=== PATIENT | female | born 1985 | race African-American/Black ===

== ENCOUNTER 2025-01-28 14:11 | Outpatient (OUT) | payer OTHER, SELFPAY ==
--- OUTSIDE RECORDS SUMMARY | 2020-11-20 08:10 | XMS_ITS | Continuity of Care Document ---
Author Organization [facility]ly [facility] rtment Address [address] [place] [address] Phone Care Team Providers Care Client Technical Professional Name Role Phone Leigha Schaefer MD Unavailable Unavailable Procedures Procedure Date PFIZER SARSCOV2 VACCINE .3ML ADMN PFIZER SARSCOV2 .3ML 2ND DOSE PFIZER SARSCOV2 VACCINE .3ML ADMN PFIZER SARSCOV2 .3ML 1ST DOSE Advance Directives Directive Yes / No Effective Date File Name No Information Encounters Encounter Description Practice Location Reason(s) For Visit Diagnoses Date Provider Providers Copied on Encounter [facility] , [address] [place], [place], [id number], tel:[phone] [facility] Dept Immunization No Information 1 Silvano Ahuja. [address] [place], [place], [id number] , . tel:[phone] [facility] , [address] [place], [place], [id number], tel:[phone] [facility] Dept Immunization No Information 1 Silvano Ahuja. [address] [place], [place], [id number] , . tel:[phone] Family History Family Member Type Diagnosis Age At Onset No Information Immunizations Vaccine Date Status Comments Pfizer COVID-19 administered Note: TPVALL ; Source: New Immunization Record Pfizer BioNtech Covid !9 Vaccine administered Note: TPVALL ; Sourc e: New Immunization Record Payers Payer name Insurance type Covered alliance party ID Authoriza tion(s) No Information Social History Type Description Quantity Date Captured Comments Sex Female Smoking Status No Information Chief Complaint And Reason For Visit No Information Reason For Referral Reason For Referral No Information History Of Present Illness Encounter Date Complaint History Of Prese nt Illness No Information Functional Status Date Functional Assessmen t No Information Instructions Date Instruction Additional Infor mation No Information Assessments Type Assessment Date No Information Patient Care Teams Name Effective Dates (start - stop) Status Members No Information
--- OUTSIDE RECORDS SUMMARY | 2024-05-14 16:30 | XMS_ITS ---
Author Organization [facility] Address [address] [place] [address] Care Team Providers Care Shellfish Checker Name Role Phone Millicent Willis Primary Care Provider Oralia Teresa [phone] REASON FOR VISIT 1MTH FOLLOW UP Encounters Encounter Location Date Provider Diagnosis [facility] [address] [place] [address] 05/14/2024 Oralia Teresa Plan Of Treatment No Information Progress Notes * CHALO JOHSNONADOB: 3 (39 yo F)Acc No.[id number]:05/14/2024 Progress Notes Patient: RADHA FLOYD Provider: Kassi Teresa CNP :1985 A ge:39 Y S ex:Female Date:05/14/2024 [address] Pcp:Millicent Willis Subjective: * Chief Complaints: * 1 . 1MTH FOLLOW UP. * Medical History: Objective: * Vitals: Assessment: Plan: * Treatment: * * Electronic signature of Oralia Teresa CNP on 01/28/2025 at 02:18 PM EDT Sign off status: Pending * Provider: Kassi Teresa CNP Date: Generated for Becky morales/Nguyen/eTransmitting on: 0 01/28/2025 02:18 PM EDT
--- OUTSIDE RECORDS SUMMARY | 2024-06-08 15:30 | XMS_ITS ---
Author Organization [facility] Address [address] [place] [address] Care Team Providers Care Local Government Legislator Name Role Phone Millicent Willis Primary Care Provider [phone] REASON FOR VISIT 4 wks, med refill Encounters Encounter Location Date Provider Diagnosis [facility] [address] [place] [address] 06/08/2024 Millicent Willis Plan Of Treatment No Information Progress Notes * ARPAN JOHNSONMELINDAJAMELB: 3 (39 yo F)Acc No.[id number]:06/08/2024 Progress Notes Patient: RADHA FLOYD Provider: Peyton Willis CNP :1985 A ge:39 Y S ex:Female Date:06/08/2024 [address] [facility] Subjective: * Chief Complaints: * 1 . 4 wks, med refill. * Medical History: Objective: * Vitals: Assessment: Plan: * Treatment: * * Electronic signature of Michael Castellon CNP on 01/28/2025 at 02:17 PM EDT Sign off status: Pending * Provider: Peyton Willis CNP Date: 08/08/2023 Generated for Becky morales/Nguyen/Berta on: 01/28/2025 02:17 PM EDT
--- OUTSIDE RECORDS SUMMARY | 2024-07-23 17:15 | XMS_ITS ---
Author Organization [facility] Address [address] [place] [address] Care Team Providers Care Pet Care Worker Name Role Phone Millicent Willis Primary Care Provider [phone] REASON FOR VISIT DISCUSS ZEPBOUND Encounters Encounter Location Date Provider Diagnosis [facility] [address] [place] [address] 07/23/2024 Millicent Willis Plan Of Treatment No Information Progress Notes * STEPHANI JOHNSONB: 3 (39 yo F)Acc No.[id number]:07/23/2024 Patient: RADHA FLOYD Provider: Peyton Willis CNP :1985 A ge:39 Y S ex:Female Date:07/23/2024 Address[address] [place], [id number] Subjective: * Chief Complaints: * 1 . DISCUSS ZEPBOUND. * Medical History: Objective: * Vitals: Assessment: Plan: * Treatment: * * Electronic signature of Michael Castellon CNP on 01/28/2025 at 02:18 PM EDT Sign off status: Pending * Provider: Peyton Willis CNP Date: 0 07/23/2024 Generated for Becky morales/Nguyen/Berta on: 0 01/28/2025 02:18 PM EDT
--- OUTSIDE RECORDS SUMMARY | 2025-01-28 14:18 | XMS_ITS | Patient Health Record ---
[facility] Organization [facility] Address [address] [place] [address] Care Team Providers Care Motor Vehicle Technician Name Role Phone Millicent Willis Primary Care Provider [phone] YOANA TOMLINSON Unavailable [phone] Oralia Teresa Unavailable [phone] Allergies Allergen (clinical drug ingredient) Drug/Non Drug Allergy documented on EMR Reaction Allergy Type Onset Date Status Grass Mix Pollens Allergen Ext Unknown Drug Allergy Active Cat dander Cat Dander Unknown Allergy Active Dog dander Dog Dander Unknown Allergy Active Results Component Value Reference Range Notes Total Iron Binding Capacity Reviewed date:07/30/2024 08:31:09 AM Interpretation: Performing Lab: Notes/Report: [facility] [address] [place] [address] Iron Sat 11.5 >=16.0 % TIBC 253 261-478 mcg/dL Transferrin 181 192-382 mg/dL Iron 29 28-170 mcg/dL Ferritin Reviewed date:07/30/2024 08:31:09 AM Interpretation: Performing Lab: Notes/Report: [facility] [address] [place] [address] Ferritin Lvl 279.2 11.0-306.8 ng/mL Diff Auto Reviewed date:05/12/2024 12:35:21 PM Interpretation: Performing Lab: Notes/Report: [facility] (UNKNOWN) [address] [place] [address] Neutro Auto 60.8 47.2-70.8 % Lymph Auto 25.2 27.2-40.8 % [place] Auto 6.3 3.7-11.9 % Eos Auto 6.8 0.0-5.4 % Basophil Auto 0.9 0.0-1.5 % Neutro Absolute 4.1 1.8-7.7 x10*3/mcL Lymph Absolute 1.7 1.0-4.8 x10*3/mcL [place] Absolute 0.4 0.1-1.1 x10*3/mcL Eos Absolute 0.5 0.0-0.4 x10*3/mcL Baso Absolute 0.1 0.0-0.2 x10*3/mcL .eGFR Reviewed date:05/12/2024 12:45:58 PM Interpretation: Performing Lab: Notes/Report: [facility] (UNKNOWN) [address] [place] [address] Estimated GFR >60 >=60 mL/min/1.73m? [facility] have implemented the eGFR calculation approach that does not have a coefficient for race and that conforms to the NKF-ASN Task Force Recommendations. Stages of Chronic Kidney Disease GFR Stage 3a Mild to moderate loss of kidney function 59 to 45 Stage 3b Moderate to severe loss of kidney function 44 to 33 Stage 4 Severe loss of kidney function 29 to 15 Stage 5 Kidney failure Less than 15 GFR calculated using the CKD-Epi Creatinine Equation (2020): eGFR = 142 X min(SCr/?, 1)? X max(SCr /?, 1)-1.200 X 0.9938Age X 1.012 [if female] Abbreviations/Units: eGFR (estimated glomerular filtration rate) = mL/min/1.73 m2 SCr (standardized serum creatinine) = mg/dL ? = 0.7 (females) or 0.9 (males) ? = -0.241 (females) or -0.302 (males) min = indicates the minimum of SCr/? or 1 max = indicates the maximum of SCr/? or 1 Age = years CMP Reviewed date:05/12/2024 12:45:58 PM Interpretation: Performing Lab: Notes/Report: [facility] (UNKNOWN) [address] [place] [address] Sodium Lvl 138 136-145 mmol/L Potassium Lvl 3.9 3.5-5.1 mmol/L Chloride 103 98-107 mmol/L CO2 30 21-31 mmol/L Anion Gap 5 4-12 Glucose Lvl 57 70-99 mg/dL BUN 9 7-25 mg/dL Creatinine Lvl 1.03 0.60-1.30 mg/dL BUN Crea Ratio 8.7 10.0-20.0 Bili Total 0.4 0.3-1.0 mg/dL Alk Phos 55 34-104 IU/L AST 14 13-39 IU/L ALT 13 7-52 IU/L Total Protein 6.9 6.4-8.9 g/dL Albumin Lvl 4.4 3.5-5.7 g/dL AG Ratio 1.8 1.1-2.2 Calcium Lvl 9.1 8.6-10.2 mg/dL Total Iron Binding Capacity Reviewed date:05/14/2024 07:46:38 AM Interpretation: Performing Lab: Notes/Report: [address] [address] Iron Sat 10.6 >=16.0 % TIBC 339 261-478 mcg/dL Transferrin 242 192-382 mg/dL Iron 36 28-170 mcg/dL Ferritin Reviewed date:05/14/2024 07:46:38 AM Interpretation: Performing Lab: Notes/Report: [address] [address] Ferritin Lvl 15.9 11.0-306.8 ng/mL Complete Blood Count w Diffe rential Reviewed date:05/12/2024 12:35:20 PM Interpretation: Performing Lab: Notes/Report: [facility] (UNKNOWN) [address] [place] [address] WBC 6.7 4.5-11.0 x10*3/mcL RBC 4.70 3.80-5.20 x10*6/mcL Hgb 13.5 12.0-16.0 g/dL Hct 41.7 36.0-46.0 % MCV 88.8 80.0-100.0 fL MCH 28.7 27.0-35.0 pg MCHC 32.3 31.0-37.0 % Platelet 389 150-450 x10*3/mcL RDW 14.6 11.6-14.8 % Mean Platelet Volume 8.2 6.7-10.6 fL Diff Auto Reviewed date:11/08/2024 08:33:01 AM Interpretation: Performing Lab: Notes/Report: [address] [address] Neutro Auto 75.8 47.2-70.8 % Lymph Auto 18.0 27.2-40.8 % [place] Auto 5.5 3.7-11.9 % Eos Auto 0.4 0.0-5.4 % Basophil Auto 0.3 0.0-1.5 % Neutro Absolute 6.9 1.8-7.7 x10*3/mcL Lymph Absolute 1.6 1.0-4.8 x10*3/mcL [place] Absolute 0.5 0.1-1.1 x10*3/mcL Eos Absolute 0.0 0.0-0.4 x10*3/mcL Baso Absolute 0.0 0.0-0.2 x10*3/mcL Complete Blood Count ashu villareal Reviewed date:11/08/2024 08:33:01 AM Interpretation: Performing Lab: Notes/Report: [address] [address] WBC 9.1 4.5-11.0 x10*3/mcL RBC 4.14 3.80-5.20 x10*6/mcL Hgb 12.2 12.0-16.0 g/dL Hct 35.4 36.0-46.0 % MCV 85.5 80.0-100.0 fL MCH 29.4 27.0-35.0 pg MCHC 34.4 31.0-37.0 % Platelet 246 150-450 x10*3/mcL RDW 15.9 11.6-14.8 % Mean Platelet Volume 8.2 6.7-10.6 fL C SUKHJINDER Reviewed date:11/16/2024 08:31:20 AM Interpretation: Performing Lab: Notes/Report: [address] [address] Note Patient Name: Radha Pierson : 1985 [facility] C SUKHJINDER See Below For Report Final No anaerobic organisms isolated. Demetris Figueroa Reviewed date:11/19/2024 08:08:32 AM Interpretation: Performing Lab: Notes/Report: [facility] (DEFAULT) [address] [facility] [place] [address] [facility] [address] [place] [address] Note Patient Name: Radha Pierson : 1985 [facility] C Bld per jenni saavedra disregard request for lab to draw 11/05/2024 06:27:11 EDT Final No growth at 5 days. C Bld See Below For Report Final No growth at 5 days. C Sterile BF Reviewed date:11/16/2024 08:31:20 AM Interpretation: Performing Lab: Notes/Report: [facility] [address] [place] [address] Note Patient Name: Radha Pierson : 1985 [facility] C Sterile BF See Below For Report Gram Stain Many White Blood Cells Final No growth at 72 hours. C Sterile BF See Below For Report Gram Stain Many White Blood Cells Final No growth at 72 hours. C Sterile BF No organisms seen. Gram Stain Many White Blood Cells Final No growth at 72 hours. .Fld pH Reviewed date:11/08/2024 08:33:01 AM Interpretation: Performing Lab: Notes/Report: [place] [address] pH Body Fluid 7.55 C SUKHJINDER Reviewed date:11/16/2024 08:31:21 AM Interpretation: Performing Lab: Notes/Report: [id number] [place] [address] Note Patient Name: Radha Pierson : 1985 [facility] C SUKHJINDER See Below For Report Final No anaerobic organisms isolated. C Sterile BF Reviewed date:11/16/2024 08:31:21 AM Interpretation: Performing Lab: Notes/Report: [facility] [address] [place] [address] Note Patient Name: Radha Pierson : 1985 [facility] C Sterile BF See Below For Report Gram Stain Many White Blood Cells Final No growth at 72 hours. C Sterile BF See Below For Report Gram Stain Many White Blood Cells Final No growth at 72 hours. C Sterile BF No organisms seen. Gram Stain Many White Blood Cells Final No growth at 72 hours. Surgical Pathology Report Reviewed date:11/10/2024 08:34:54 AM Interpretation: Performing Lab: Notes/Report: [facility] (DEFAULT) [address] [place], [place] [id number] Note Patient Name: Radha Pierson : 1985 [facility] Surgical Pathology Report Clinical Information Procedure: Diagnostic laparoscopy robotic Pre-operative diagnosis: Vaginal dehiscence SP Specimen A Vaginal Cuff Trimmings Gross Description Received in formalin labeled 'vaginal cuff trimmings' are multiple pieces of unoriented pink-ochoa tissue measuring in aggregate 1.5 x 1.0 x 0.6 cm. Fragments of tissue measure 0.5 x 0.3 x 0.2 cm and 1.5 x 0.3 x 0.2 cm. The excision margin of each piece of tissue is painted with black ink. The specimen is entirely submitted intact in cassettes A1-A3. Microscopic Description The vaginal cuff trimmings show vaginal mucosa with ulceration and acute and chronic inflammation and foreign body giant cell reaction to refractile material. There is no evidence of malignancy. Diagnosis Vaginal cuff trimmings from vaginal dehiscence: Vaginal mucosa with ulceration. Acute and chronic inflammation and foreign body giant cell reaction to refractile foreign material in the underlying soft tissue. [id number] Kathrine Irizarry MD (Electronically signed by) Verified: 11/09/24 12:33 Body Fluid Panel Reviewed date:11/08/2024 08:33:01 AM Interpretation: Performing Lab: Notes/Report: vaginal fluid from vaginal defect and peritoneal [place] [address] Fld Panel Body Fluid Type Other The reference range and analytic accuracy have not been established for these tests in this sample type. The test results should be interpreted based on clinical context. Glucose Body Fluid 11 LDH Body Fluid 410 Protein Body Fluid <3.0 Body Fluid Creatinine Reviewed date:11/08/2024 08:33:01 AM Interpretation: Performing Lab: Notes/Report: [place] [address] Creatinine Body Fluid Type Peritoneal Creatinine Body Fluid 0.6 Hep Bs Ag Reviewed date:02/16/2024 02:17:22 PM Interpretation: Performing Lab: Notes/Report: [facility] [address] [place] [address] Hep Bs Ag Interp Non-Reactive Non-Reactive Diff Auto Reviewed date:02/16/2024 02:17:22 PM Interpretation: Performing Lab: Notes/Report: [facility] (UNKNOWN) [address] [place] [address] Neutro Auto 63.3 47.2-70.8 % Lymph Auto 27.1 27.2-40.8 % [place] Auto 5.0 3.7-11.9 % Eos Auto 3.5 0.0-5.4 % Basophil Auto 1.1 0.0-1.5 % Neutro Absolute 4.0 1.8-7.7 x10*3/mcL Lymph Absolute 1.7 1.0-4.8 x10*3/mcL [place] Absolute 0.3 0.1-1.1 x10*3/mcL Eos Absolute 0.2 0.0-0.4 x10*3/mcL Baso Absolute 0.1 0.0-0.2 x10*3/mcL .eGFR Reviewed date:02/16/2024 02:17:22 PM Interpretation: Performing Lab: Notes/Report: [facility] (UNKNOWN) [address] [place] [address] Estimated GFR >60 >=60 mL/min/1.73m? [facility] have implemented the eGFR calculation approach that does not have a coefficient for race and that conforms to the NKF-ASN Task Force Recommendations. Stages of Chronic Kidney Disease GFR Stage 3a Mild to moderate loss of kidney function 59 to 45 Stage 3b Moderate to severe loss of kidney function 44 to 33 Stage 4 Severe loss of kidney function 29 to 15 Stage 5 Kidney failure Less than 15 GFR calculated using the CKD-Epi Creatinine Equation (2020): eGFR = 142 X min(SCr/?, 1)? X max(SCr /?, 1)-1.200 X 0.9938Age X 1.012 [if female] Abbreviations/Units: eGFR (estimated glomerular filtration rate) = mL/min/1.73 m2 SCr (standardized serum creatinine) = mg/dL ? = 0.7 (females) or 0.9 (males) ? = -0.241 (females) or -0.302 (males) min = indicates the minimum of SCr/? or 1 max = indicates the maximum of SCr/? or 1 Age = years CMP Reviewed date:02/16/2024 02:17:22 PM Interpretation: Performing Lab: Notes/Report: [facility] (UNKNOWN) [address] [place] [address] Sodium Lvl 138 136-145 mmol/L Potassium Lvl 3.5 3.5-5.1 mmol/L Chloride 108 98-107 mmol/L CO2 23 21-31 mmol/L Anion Gap 7 4-12 Glucose Lvl 87 70-99 mg/dL BUN 11 7-25 mg/dL Creatinine Lvl 0.81 0.60-1.30 mg/dL BUN Crea Ratio 13.6 10.0-20.0 Bili Total 0.4 0.3-1.0 mg/dL Alk Phos 46 34-104 IU/L AST 13 13-39 IU/L ALT 11 7-52 IU/L Total Protein 6.9 6.4-8.9 g/dL Albumin Lvl 4.2 3.5-5.7 g/dL AG Ratio 1.6 1.1-2.2 Calcium Lvl 9.2 8.6-10.2 mg/dL Total Iron Binding Capacity Reviewed date:02/16/2024 02:17:22 PM Interpretation: Performing Lab: Notes/Report: [facility] [address] [place] [address] Iron Sat 25.1 >=16.0 % TIBC 319 261-478 mcg/dL Transferrin 228 192-382 mg/dL Iron 80 28-170 mcg/dL Ferritin Reviewed date:02/16/2024 02:17:22 PM Interpretation: Performing Lab: Notes/Report: [facility] [address] [place] [address] Ferritin Lvl 44.4 11.0-306.8 ng/mL Complete Blood Count w Ru villareal Reviewed date:02/16/2024 02:17:22 PM Interpretation: Performing Lab: Notes/Report: [facility] (UNKNOWN) [address] [place] [address] WBC 6.4 4.5-11.0 x10*3/mcL RBC 4.58 3.80-5.20 x10*6/mcL Hgb 12.9 12.0-16.0 g/dL Hct 39.8 36.0-46.0 % MCV 86.8 80.0-100.0 fL MCH 28.2 27.0-35.0 pg MCHC 32.5 31.0-37.0 % Platelet 285 150-450 x10*3/mcL RDW 20.8 11.6-14.8 % Mean Platelet Volume 7.4 6.7-10.[address] Abdomen Pelvis w/ IV Cont rast Reviewed date:11/08/2024 08:33:01 AM Interpretation: Performing Lab: Notes/Report: Patient Name: Radha Pierson EXAM: CT Abdomen Pelvis w/ IV Contrast C Bld Reviewed date:11/19/2024 08:08:32 AM Interpretation: Performing Lab: Notes/Report: [facility] [address] [place] [address] Note : 1985 [facility] Patient Name: Radha Pierson C Bld See Below For Report Final No growth at 5 days. Dinah Schaffer-Quitman Reviewed date:08/06/2024 01:00:05 PM Interpretation: Performing Lab: Notes/Report: [facility] [address] [place] [address] Soluble Transferrin Receptor (sTfR)-[place] 3.7 1.8 - 4.6 mg/L ADDITI ONAL INFORMATION ----- It is reported that Americans may have slightly higher values. Test Performed by: [address] [address] Geotechnical Operating Engineer: Jose C Hassan Ph.D.; CLIA# [id number] CT Abdomen Pelvis w/ IV Cont rast Reviewed date:07/20/2024 12:06:06 PM Interpretation: Performing Lab: Notes/Report: Patient Name: Radha Pierson EXAMINATION: CT Abdomen Pelvis w/ IV Contrast, 07/19/2024, 8:49 AM EST. Diff Auto Reviewed date:07/30/2024 08:31:09 AM Interpretation: Performing Lab: Notes/Report: [facility] (UNKNOWN) [address] [place] [address] Neutro Auto 75.0 47.2-70.8 % Lymph Auto 15.4 27.2-40.8 % [place] Auto 8.3 3.7-11.9 % Eos Auto 0.7 0.0-5.4 % Basophil Auto 0.6 0.0-1.5 % Neutro Absolute 7.1 1.8-7.7 x10*3/mcL Lymph Absolute 1.5 1.0-4.8 x10*3/mcL [place] Absolute 0.8 0.1-1.1 x10*3/mcL Eos Absolute 0.1 0.0-0.4 x10*3/mcL Baso Absolute 0.1 0.0-0.2 x10*3/mcL Complete Blood Count w Diffe rential Reviewed date:07/30/2024 08:31:09 AM Interpretation: Performing Lab: Notes/Report: [facility] (UNKNOWN) [address] [place] [address] WBC 9.5 4.5-11.0 x10*3/mcL RBC 4.11 3.80-5.20 x10*6/mcL Hgb 12.0 12.0-16.0 g/dL Hct 35.7 36.0-46.0 % MCV 86.9 80.0-100.0 fL MCH 29.1 27.0-35.0 pg MCHC 33.5 31.0-37.0 % Platelet 747 150-450 x10*3/mcL RDW 17.6 11.6-14.8 % Mean Platelet Volume 7.4 6.7-10.6 fL Surgical Pathology Report Reviewed date:03/11/2024 12:42:25 PM Interpretation: Performing Lab: Notes/Report: [facility] (DEFAULT) [address] [place] [address] Note Patient Name: Radha Pierson : 1985 [facility] Surgical Pathology Report Part C: Received in formalin labeled 'GE junction biopsies' are three pieces of light ochoa tissue measuring 0.2 to 0.3 cm in greatest dimension. The specimen is entirely submitted in cassette C1. Clinical Information Procedure: EGD Pre-operative diagnosis: dyspepsia SP Specimen A Random duodenal biopsies B Random gastric biopsies C GE junction biopsies Gross Description Part A: Received in formalin labeled 'random duodenal biopsies' are four pieces of light ochoa tissue measuring 0.2 to 0.3 cm in greatest dimension. The specimen is entirely submitted in cassette A1. Part B: Received in formalin labeled 'random gastric biopsies' are four pieces of light ochoa tissue measuring 0.1 to 0.5 cm in greatest dimension. The specimen is entirely submitted in cassette B1. Microscopic Description Part A: Sections examined at multiple levels show fragments of duodenal mucosa showing no significant villous shortening. The lamina propria shows a normal amount of chronic inflammatory cells. There is no evidence of acute inflammation or granulomatous disease. There is no evidence of dysplasia or malignancy. There is no evidence of celiac disease. Part B: Sections examined at multiple levels show fragments of gastric mucosa showing lamina propria with mildly increased lymphocytes, plasma cells and scattered eosinophils. The glandular epithelium shows slight reactive changes. There is no evidence of acute inflammation or granulomatous disease. There is no evidence of dysplasia or malignancy. No Helicobacter pylori is seen on the H Part C: Sections examined at multiple levels show fragments of gastroesophageal junctional zone mucosa. The squamous epithelium shows very rare eosinophils.. The glandular mucosa shows distended lamina propria with mild chronic inflammation. No significant acute inflammation is noted. There is no evidence of intestinal metaplasia, dysplasia or malignancy. Diagnosis Part A: Duodenum, biopsies: No significant pathologic change. Part B: Stomach, random biopsies: Mild chronic inflammation. Part C: Gastroesophageal junction, biopsies: Mild chronic inflammation. [id number] Joann Duarte MD PhD (Electronically signed by) Verified: 03/10/24 14:47 Reason For Referral No Information Medications Medication SIG (Take, Route, Frequency, Duration) Notes Start Date End Date Status predniSONE 20 MG 1 tablet Orally twic e daily; Duration: 5 days 05/11/2024 Active Vitamin B-12 500 MCG 1 tablet under the tongue and allow to dissolve Sublingual Once a day; Duration: 30 days 11/03/2023 Active Albuterol Sulfate HFA 108 (90 Base) MCG/ACT 2 puffs Inhalation every 4-6 hours as needed; Duration: 30 05/11/2024 Active Terbinafine HCl 1 % 1 application to aff ected area Externally Twice a day; Duration: 28 days 01/02/2024 Active Phentermine HCl 37.5 MG 1 tablet Orally Once a day; Duration: 30 days R63.5 05/11/2024 Active Ferrous Sulfate 325 (65 Fe) MG 1 tablet Orally Once a day; Duration: 30 day(s) 10/14/2023 Active Jdhdpxlhb-Mqfahpxu-IQ 30-2-10 MG/5ML 10ml Orally every 6 hours as needed for cough; Duration: 5 days 05/11/2024 Active Vitamin D3 Ultra Strength 125 MCG (5000 UT) 1 capsule Orally Once a day; Duration: 90 days 10/14/2023 Active Cetirizine HCl 10 MG 1 tablet Orally Onc e a day; Duration: 30 days 09/30/2023 Active Social History Tobacco Use: Social History Observation Description Date Details (start date - stop date) Never Smoker NA - NA Tobacco Use/Smoking Question Answer Notes Are you a nonsmoker Section Notes: Smoking Status:None Alcohol Use: Twice a week Recreational Drugs: Marijuana Caffeine Use: Coffee, 2 cups a day Pets: 3 Dogs , 1 cat Occupation: Unemploy[employer] Marital Status: Single # in household: Nuzhat Tobin 09/30/2023 11:21:00 AM > Smoking Status:None Alcohol Use: Twice a week Recreational Drugs: Marijuana Caffeine Use: Coffee, 2 cups a day Pets: 3 Dogs , 1 cat Occupation: [employer]employ[employer] Marital Status: Single # in household: Nuzhat Tobin 09/30/2023 11:21:00 AM > Smoking Status:None Alcohol Use: Twice a week Recreational Drugs: Marijuana Caffeine Use: Coffee, 2 cups a day Pets: 3 Dogs , 1 cat Occupation: [employer]employ[employer] Marital Status: Single # in household: Nuzhat Tobin 09/30/2023 11:21:00 AM > Smoking Status:None Alcohol Use: Twice a week Recreational Drugs: Marijuana Caffeine Use: Coffee, 2 cups a day Pets: 3 Dogs , 1 cat Occupation: [employer]employ[employer] Marital Status: Single # in household: Nuzhat Tobin 09/30/2023 11:21:00 AM > Smoking Status:None Alcohol Use: Twice a week Recreational Drugs: Marijuana Caffeine Use: Coffee, 2 cups a day Pets: 3 Dogs , 1 cat Occupation: [employer]employ[employer] Marital Status: Single # in household: Nuzhat Tobin 09/30/2023 11:21:00 AM > Smoking Status:None Alcohol Use: Twice a week Recreational Drugs: Marijuana Caffeine Use: Coffee, 2 cups a day Pets: 3 Dogs , 1 cat Occupation: [employer]employ[employer] Marital Status: Single # in household: Nuzhat Tobin 09/30/2023 11:21:00 AM > Smoking Status:None Alcohol Use: Twice a week Recreational Drugs: Marijuana Caffeine Use: Coffee, 2 cups a day Pets: 3 Dogs , 1 cat Occupation: [employer]employ[employer] Marital Status: Single # in household: Nuzhat Tobin 09/30/2023 11:21:00 AM > Smoking Status:None Alcohol Use: Twice a week Recreational Drugs: Marijuana Caffeine Use: Coffee, 2 cups a day Pets: 3 Dogs , 1 cat Occupation: [employer]employ[employer] Marital Status: Single # in household: Nuzhat Tobin 09/30/2023 11:21:00 AM > Smoking Status:None Alcohol Use: Twice a week Recreational Drugs: Marijuana Caffeine Use: Coffee, 2 cups a day Pets: 3 Dogs , 1 cat Occupation: Unemploy[employer] Marital Status: Single # in household: Nuzhat Tobin 09/30/2023 11:21:00 AM > Smoking Status:None Alcohol Use: Twice a week Recreational Drugs: Marijuana Caffeine Use: Coffee, 2 cups a day Pets: 3 Dogs , 1 cat Occupation: Unemployeed Marital Status: Single # in household: Nuzhat Tobin 09/30/2023 11:21:00 AM > Problems Problem Type SNOMED Code ICD Code Onset Dates Problem Status W/U Status Risk Notes Problem Vitamin D deficiency (29493191) Vitamin D deficiency (E55.9) Active confirmed Problem Endometriosis (310289186) Endometriosis (N80.9) Active confirmed Problem Iron deficiency anemia (75812298) Iron deficiency anemia, unspecified iron deficiency anemia type (D50.9) Active confirmed Problem Seasonal allergy (224812306) Seasonal allergies (J30.2) Active confirmed Problem Allergic rhinitis (41397088) Allergic rhinitis, unspecified seasonality, unspecified trigger (J30.9) Active confirmed Problem Multiple thyroid nodules (082364832) Multiple thyroid nodules (E04.2) Active confirmed Problem History of anemia (073559126) History of anemia (Z86.2) Active confirmed Problem History of gestational diabetes mellitus (695951358) History of gestational diabetes (Z86.32) Active confirmed Vital Signs Heart Rate 84 /min 05/11/2024 Temperature 98.0 degrees Fahrenheit 05/11/2024 Respiratory Rate 17 /min 05/11/2024 Oximetry 98 % 05/11/2024 Blood pressure diastolic 89 mm Hg 05/11/2024 Height 65 in 05/11/2024 Blood pressure systolic 134 mm Hg 05/11/2024 Weight 203.6 lbs 05/11/2024 BMI 33.88 kg/m2 05/11/2024 Encounters Encounter Location Date Provider Diagnosis [address] [address] 02/16/2024 Oralia Teresa Abnormal weight gain R63.5 ; Poison kedar dermatitis L23.7 and Seasonal allergies J30.[address] [address] 04/12/2024 Oralia Teresa Seasonal allergies J30.2 and Abnormal weight gain R63.[address] [address] 05/11/2024 Millicent Willis Abnormal weight gain R63.5 and Upper respiratory infection J06.[address] [address] 02/11/2024 Millicent Willis Allergic rhinitis, unspecified seasonality, unspecified trigger J30.9 and Low vitamin B12 level R79.[address] [address] 03/02/2024 Oralia Teresa Abnormal weight gain R63.[address] [address] 07/22/2024 Millicent Willis Assessments Encounter Date Diagnosis (ICD Code) Assessment Notes Treatment Notes Treatment Clinical Notes Section Notes 02/11/2024 Allergic rhinitis, unspecified seasonality, unspecified trigger (ICD-10 - J30.9) 02/16/2024 Poison kedar dermatitis (ICD-10 - L23.7) keep area cool and dry, oral steroids ordered 03/02/2024 Abnormal weight gain (ICD-10 - R63.5) 04/12/2024 Abnormal weight gain (ICD-10 - R63.5) Patient advised to limit carbohydrates, increase proteins and vegetables, drink plenty water, avoid sweetened beverages, exercise 4-5 times weekly for a minimum of 150-200 minutes of cardio exercise per week. Will need to lose weight this month or med will be discontinued 04/12/2024 Seasonal allergies (ICD-10 - J30.2) Avoid allergens Take med daily 05/11/2024 Abnormal weight gain (ICD-10 - R63.5) Patient encouraged to exercise daily and limit carb intake. Aware that she must not become while on this medication. Aware that it may cause constipation, dry mouth and elevated heart rate and knows to call for these or any other adverse reactions Weight stable. 02/16/2024 Abnormal weight gain (ICD-10 - R63.5) Pt advised to exercise 4-5 times weekly, limit carbohydrates and increase vegetables, proteins and water intake. Avoid eating late at night. Avoid soda's and sweetened beverages. 02/16/2024 Seasonal allergies (ICD-10 - J30.2) avoid allergens 05/11/2024 Upper respiratory infection (ICD-10 - J06.9) Pt advised to rest, drink lots of fluids. Avoid tobacco use or exposure. Use immune support vitamins 02/11/2024 Low vitamin B12 level (ICD-10 - R79.89) Plan Of Treatment Pending Test Test Name Order Date Iron and TIBC 09/30/2023 Vitamin D, 25-Hydroxy 09/30/2023 MAMMOGRAM, SCREENING 11/03/2023 Ferritin 09/30/2023 Hemoglobin A1c 09/30/2023 Lipid Panel 09/30/2023 US Biopsy Thyroid w/ FNA 10/14/2023 B12 AND FOLATE 09/30/2023 CBC NO DIFF 09/30/2023 TSH 09/30/2023 FREE T4 09/30/2023 CMP 09/30/2023 Insurance Providers Payer Name Payer Address Payer Phone Subscriber Number Group Number Insured Name Patient Relationship to Insured Coverage Start Date Coverage End Date [facility] [address] [place] [phone] [id number] RADHA PIERSON Self - patient is the insured Medical (General) History Medical History History ICD Code endometriosis-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
--- OUTSIDE RECORDS SUMMARY | 2025-01-28 14:18 | XMS_ITS | Clinical Summary ---
Author Organization [facility] Address [address] [place] [address] Care Team Providers Care Doweling Machine Operator Name Role Phone Millicent Willis APRN - BAG LINER Primary Care Provider [phone] [phone] Allergies Active Allergy Reactions Criticality Noted Date Comments Cat Dander Other (See Comments) 01/06/2024 Dog Epithelium Other (See Comments) 01/06/2024 Mixed Grasses Other (See Comments) 01/06/2024 Medications vitamin D (VITAMIN D3 ULTRA STRENGTH) 125 MCG (5000 UT) CAPS capsule 1 capsule 10/14/2023 Active cetirizine (ZYRTEC) 10 MG tablet Take 1 tablet by mouth daily 01/03/2024 Active vitamin B-12 (CYANOCOBALAMIN ) 500 MCG tablet 01/03/2024 Active estradiol (ESTRACE) 1 MG tablet Take 1 tablet by mouth daily 30 tablet 09/07/2024 Active ciprofloxacin (CIPRO) 500 MG tablet 11/06/2024 Active hydrOXYzine HCl (ATARAX) 25 MG tablet 11/03/2024 Active ibuprofen (ADVIL;MOTRIN) 800 MG tablet 11/06/2024 Activ e lurasidone (LATUDA) 40 MG TABS tablet 11/03/2024 Active oxyCODONE-aceta minophen (PERCOCET) 5-325 MG per tablet 11/06/2024 Active traZODone (DESYREL) 50 MG tablet 11/03/2024 Active FLUoxetine (PROZAC) 20 MG capsule 12/01/2024 Active PARoxetine HCl (PAXIL PO) Take by mouth Active Encounters Date Type Department Care Team Description 01/26/2025 Telephone [facility] Obstetrics & Gynecology [address], [address] [place] [address] Candis Alberts PA-C Medication Refill 12/15/2024 Orders Only [facility] Obstetrics & Gynecology [address], [address] [place] [address] Candis Alberts PA-C 12/15/2024 Results Follow-Up [facility] Obstetrics & Gynecology [address] [facility], [address] [place] [address] Candis Alberts PA-C 12/14/2024 7:24 PM EDT - 12/14/2024 11:59 PM EDT Hospital Encounter [facility] [address] [place] [id number] Vaginal discharge Discharge Disposition: Home or Self Care 12/14/2024 1:15 PM EDT Office Visit [facility] Obstetrics & Gynecology [address] [facility], [address] [place] [address] Candis Alberts PA-C Vaginal discharge (Primary Dx) 11/09/2024 1:45 PM EDT Office Visit [facility] Obstetrics & Gynecology [address], [address] [place] [address] Candis Alberts PA-C Dehiscence of vaginal cuff, sequela (Primary Dx) from Last 3 Months Family History Medical History Relation Name Comments Diabetes Father Heart Attack Father Hypertension Father Diabetes Mother Relation Name Status Comments Father Mother Social History Tobacco Use Types Packs/Day Years Used Date Smoking Tobacco: Every Day E-Cigarettes Smokeless Tobacco: Never Tobacco Cessation:Ready to Q uit: Not Asked; Counseling Given: Not Answered Alcohol Use Standard Drinks/Week Comments Yes 0 (1 standard drink = 0.6 oz pur e alcohol) [facility] Utilities Answer Date Recorded In the past 12 months has [employer], gas, oil, or water [employer] threatened to shut off services in your home? No 08/03/2024 Overall Financial Resource Strain (CARDIA) Answe r Date Recorded How hard is it for you to pa y for the very basics like food, housing, medical care, and heating? Not very hard 05/17/2024 PHQ-2 Answer Date Recorded PHQ-9 Total Score 0 08/03/2024 Hunger Vital Sign Answer Date Recorded Within the past 12 months, y ou worried that your food would run out before you got the money to buy more. Never true 08/03/19 25 Within the past 12 months, t he food you bought just didn't last and you didn't have money to get more. Never true 08/03/2024 PRAPARE - Transportation Answer Date Re corded In the past 12 months, has l ack of transportation kept you from medical appointments or from getting medications? No 07/21 In the past 12 months, has l ack of transportation kept you from meetings, work, or from getting things needed for daily living? No 08/03/2024 Housing Stability Vital Sign Answer Cameron e Recorded In the last 12 months, was t here a time when you were not able to pay the mortgage or rent on time? No 08/03/2024 In the past 12 months, how m any times have you moved where you were living? 0 08/03/2024 At any time in the past 12 m [facility], were you homeless or living in a skilled nursing (including now)? No 08/03/2024 Food Insecurity Answer Date Recorded Within the past 12 months, y ou worried that your food would run out before you got the money to buy more. 1 08/03/2024 Within the past 12 months, t he food you bought just didn't last and you didn't have money to get more. 1 08/03/2024 Interpersonal Safety Domain Source: IP Abuse Scr eening Answer Date Recorded Physical abuse Denies 07/12/2024 Verbal abuse Denies 07/12/2024 Emotional abuse Denies 07/12/2024 Financial abuse Denies 07/12/2024 Sexual abuse Denies 07/12/2024 Comments No Sex and Gender Information Value Date Recorded Sex Assigned at Not on file Legal Sex Female 8:56 PM EST Gender Identity Not on file Sexual Orientation Not on file Last Filed Vital Signs Vital Sign Reading Time Taken Comments Blood Pressure 128/88 12/14/2024 1:15 PM EDT Pulse 85 07/12/2024 3:00 PM EST Temperature 36.2 C (97.2 F) 07/12/2024 1:30 PM EST Respiratory Rate 18 07/12/2024 3:00 PM EST Oxygen Saturation 96% 07/12/2024 3:00 PM EST Inhaled Oxygen Concentration - - Weight 83.6 kg (184 lb 6.4 oz) 12/14/2024 1:15 P M EDT Height 165.1 cm (5' 5 ) 08/18/2024 10:04 AM EST Body Mass Index 30.69 08/18/2024 10:04 AM EST Plan of Treatment Health Maintenance Due Date Last Done Comments Varicella vaccine (1 of 2 - 13+ 2-dose series) 02/27/1996 HIV screen 1998 Hepatitis C screen 2001 Hepatitis B vaccine (1 of 3 - 19+ 3-dose series) 2002 Pneumococcal 0-49 years Vaccine (1 of 2 - PCV) 2002 Diabetes screen 2018 Breast cancer screen 2023 Lipids 2023 COVID-19 Vaccine (3 - 2023-2 5 season) 2024 11/20/2020, 10/30/2020 Flu vaccine (#1) 02/18/2025 Depression Screen 08/03/2025 08/03/2024, 08/03/2024 DTaP/Tdap/Td vaccine (2 - Td or Tdap) 12/12/2026 12/12/2016 Cervical cancer screen Discontinued HPV (without or with Pap) Discontinued 02/05/2024 Pap smear Discontinued 02/05/2024 HPV vaccine Aged Out No longer eligi ble based on patient's age to complete this topic Hepatitis A vaccine Aged Out No longe r eligible based on patient's age to complete this topic Hib vaccine Aged Out No longer eligi ble based on patient's age to complete this topic Meningococcal (ACWY) vaccine Aged Out No longer eligible based on patient's age to complete this topic Meningococcal B vaccine Aged Out No l onger eligible based on patient's age to complete this topic Polio vaccine Aged Out No longer elig ible based on patient's age to complete this topic Procedures Procedure Name Priority Date/Time Associated Diagnosis Comments VAGINITIS DNA PROBE Routine 12/14/2024 7 :48 PM EDT Vaginal discharge HUMAN PAPILLOMAVIRUS (HPV) DNA PROBE THIN PREP HIGH RISK Routine 02/05/2024 12:00 AM EDT BRICK CHIMNEY BUILDER CYTOLOGY Routine 02/05/2024 12:00 AM EDT from Last 3 Months or Most Recently Relevant to Health Maintenance Results * (ABNORMAL) Vaginitis DNA Probe (12/14/2024 7:48 PM EDT) Source .VAGINAL SWAB 12/14/2024 7:48 PM EDT [facility] Trichomonas NEGATIVE NEGATIVE 12/14/2024 7:48 PM EDT [facility] Comment:for Trichomonas Vagi nalis GARDNERELLA VAGINALIS POSITIVE(A) NEGATIVE 12/14/2024 7:48 PM EDT [facility] Comment:for Gardnerella vagi nalis Kim species NEGATIVE NEGATIVE 7:48 PM EDT [facility] Comment: for Kim sp. Method of testing is a DNA probe intended for detection and identification of Kim species, Gardnerella vaginalis, and Trichomonas vaginalis nucleic acid in vaginal fluid specimens from patients with symptoms of vaginitis/vaginosis. SPECIMEN FROM CERVIX OR VAGINA / Unknown 12/14/2024 7:48 PM EDT 12/14/2024 7:48 PM EDT Candis Alberts PA-C MICROBIOLOGY - GENERAL O RDERABLES Final Result [facility] [address] [phone] * Human papillomavirus (HPV) DNA probe thin prep high risk (02/05/2024 12:00 AM EDT) Specimen Description CERVICAL MATERIAL 02/05/2024 12:00 AM EDT [facility] HPV Sample .THIN PREP 02/05/2024 12:00 AM EDT [facility] HPV, Genotype 16 Not Detected Not Detected 02/05/2024 12:00 AM EDT [facility] HPV, Genotype 18 Not Detected Not Detected 02/05/2024 12:00 AM EDT [facility] HPV, High Risk Other Not Detected Not Detected 02/05/2024 12:00 AM EDT [facility] HPV, Interpretation 02/05/2024 12:00 AM EDT [facility] Comment: This test amplifies and detects DNA of 14 high-risk HPV types associated with cervical cancer and its precursor lesions (HPV types 16,18, 31, 33, 35, 39, 45, 51, 52, 56, 58, 59, 66, and 68). Sensitivity may be affected by specimen collection methods, stage of infection, and the presence of interfering substances. Results should be interpreted in conjunction with other available laboratory and clinical data. A negative high-risk HPV result does not exclude the possibility of future cytologic HSIL or underlying CIN2-3 or cancer. This test is intended for medical purposes only and is not valid for the evaluation of suspected sexual abuse or for other forensic purposes. CERVICAL MATERIAL 02/05/2024 Candis Alberts PA-C HEMATOLOGY ORDERABLES Fi nal Result [facility] [address] [place] [address], [facility] [phone] * BRICK CHIMNEY BUILDER Cytology (02/05/2024 12:00 AM EDT) Cytology Report Path Number: [id number] DIAGNOSIS Imaged ThinPrep Pap - Cervical (1 monolayer slide): Specimen Adequacy: Satisfactory for evaluation. - Endocervical/trans formation zone component present. - Partially obscuring exudate. Descriptive Diagnosis: Negative for intraepithelial lesion or malignancy. Cytotech Screener: EN Electronically Signed Out CORAZON Diaz(ASCP) en/02/17/2024 Procedure/Addendum HPV Procedure Report Date Ordered: 02/10/2024 Status: Signed Out Date Complete: 02/10/2024 By: System Interface Date Reported: 02/10/2024 Sample: HPV Type 16 Result: Not Detected Ref Range: (Not Detected) Sample: HPV Type 18 Result: Not Detected Ref Range: (Not Detected) Sample: Other High Risk HPV Result: Not Detected Ref Range: (Not Detected) Sample: HPV Interp Result: Ref Range: (Not Detected) This test amplifies and detects DNA of 14 high-risk HPV types associated with cervical cancer and its precursor lesions (HPV types 16,18, 31, 33, 35, 39, 45, 51, 52, 56, 58, 59, 66, and 68). Sensitivity may be affected by specimen collection methods, stage of infection, and the presence of interfering substances. Results should be interpreted in conjunction with other available laboratory and clinical data. A negative high-risk HPV result does not exclude the possibility of future cytologic HSIL or underlying CIN2-3 or cancer. This test is intended for medical purposes only and is not valid for the evaluation of suspected sexual abuse or for other forensic purposes. Performed at [address] [id number] . Source of Specimen: A: Imaged ThinPrep Pap - Cervical (1 monolayer slide) HPV Reflex?........... ...........HPV Regardless Clinical History Z01.419 Routine chemist water purification exam without abnormal findings LMP: 12/16/2023 Processing Lab: [address] [id number] Interpretation performed at [address] [address] This Pap Test has been evaluated with the assistance of the ThinPrep Pap Test Imaging System. The Pap smear is a screening test primarily for squamous epithelial lesions, which is subject to both false negative and false positive results. Your patient should be reminded to consult you immediately if she experiences any suspicious signs or symptoms, regardless of her Pap smear result. GYNECOLOGIC CYTOLOGY REPORT Patient Name: JEIMY PIERSON [facility] Rec: [id number] [facility] ANATOMIC PATHOLOGY [address] [place] [id number] [facility] [employer] CERVICAL MATERIAL 02/05/2024 024 6:51 AM EDT us Candis Alberts PA-C PATHOLOGY/CYTOLOGY ORDER BRYCE Final Result [facility] [address] [place] [address], [facility] [phone] YUDI REDDY [facility] from Last 3 Months or Most Recently Relevant to Health Maintenance Insurance [employer] Advance Directives * Full Code (Latest Code Status on File) Date Activated Date Inactivated Comments 07/12/2024 10:34 AM 07/12/2024 5:11 PM Care Teams Doweling Machine Operator Relationship Specialty Start Date End Date Millicent Willis APRN - BAG LINER [address] [place] [address] PCP - General Nurse Practitioner 11/27/23
--- OUTSIDE RECORDS SUMMARY | 2025-01-28 14:18 | XMS_ITS | Encounter Summary ---
Author Organization [facility] Address [address] [place] [address] Care Team Providers Care Hr Advisor Name Role Phone Millicent Willis RETURN TO SERVICE INSPECTOR - FORM COVERER Primary Care Provider [phone] Encounter Details Date Type Department Care Team ([facility] Contact Info) Description 12/15/2024 Results Follow-Up [facility] Obstetrics & Gynecology [address] [facility] [address], [address] [place] [address] Candis Alberts PA-C [address] [place] [address] Social History Tobacco Use Types Packs/Day Years Used Date Smoking Tobacco: Every Day E-Cigarettes Smokeless Tobacco: Never Alcohol Use Standard Drinks/Week Comments Yes 0 (1 standard drink = 0.6 oz pur e alcohol) [facility] Utilities Answer Date Recorded In the past 12 months has [employer], gas, oil, or water [employer] threatened to shut off services in your [...] any time in the past 12 m [facility], were you homeless or living in a fpc (including now)? No 08/03/2024 Food Insecurity Answer [...] on file Sexual Orientation Not on file documented as of this encounter Plan of Treatment Not on file documented as of this encounter Visit Diagnoses Not on filedocumented in this encounter Care Teams Hr Advisor Relationship Specialty Start Date End Date Millicent Willis APRN - FORM COVERER [address] [place] [address] PCP - General Nurse Practitioner 11/27/23 documented as of this encounter
--- OUTSIDE RECORDS SUMMARY | 2025-01-28 14:18 | XMS_ITS | Encounter Summary ---
Author Organization [facility] Address [address] [place] [address] Care Team Providers Care Crutcher Helper Name Role Phone Millicent Willis APRN - INSURANCE FOLLOW UP REPRESENTATIVE Primary Care Provider [phone] [phone] Reason for Visit * Reason Onset Date Comments Medication Refill 01/26/2025 Encounter Details Date Type Department Care Team ([facility] st Contact Info) Description 01/26/2025 Telephone [facility] Obstetrics & Gynecology [address], [address] [place] [address] Candis Alberts PA-C [address] [place] [address] Medication Refill Social History Tobacco Use Types Packs/Day Years Used Date Smoking Tobacco: Every Day E-Cigarettes Smokeless Tobacco: Never Alcohol Use Standard Drinks/Week Comments Yes 0 (1 standard drink = 0.6 oz pur e alcohol) [facility] Utilities Answer Date Recorded In the past 12 months has e [employer], gas, oil, or water [employer] threatened to shut off services in your [...] any time in the past 12 m [facility], were you homeless or living in a usp (including now)? No 08/03/2024 Food Insecurity Answer [...] on filedocumented in this encounter Care Teams Crutcher Helper Relationship Specialty Start Date End Date Millicent Willis APRN - INSURANCE FOLLOW UP REPRESENTATIVE [address] [place] [address] PCP - General Nurse Practitioner 11/27/23 documented as of this encounter
[2025-01-28 14:44] LABS: Hematocrit 37.9 % (36.0-48.0); Hemoglobin 12.2 g/dL (12.0-16.0); Immature Granulocytes Abs Auto 0.01 10^3/uL (0.00-0.03); Immature Granulocytes Pct Auto 0.2 % (0.0-0.5); Lymphocytes Absolute Auto 1.8 10^3/uL (1.2-3.8); Mean Corpuscular HGB Conc 32.2 g/dL (29.9-35.2); Mean Corpuscular Hemoglobin 28.8 pg (26.7-34.0); Mean Corpuscular Volume 89.4 fL (81.0-99.0); Platelet Count 284 10^3/uL (150-450); Red Blood Count 4.24 10^6/uL (4.20-5.40); White Blood Count 5.7 10^3/uL (4.0-11.0)
[2025-01-28 15:04] LABS: Alanine Aminotransferase 56 U/L (14-59); Albumin Globulin Ratio 1.1; Albumin Level 3.0 g/dL (3.4-5.0); Alkaline Phosphatase 64 U/L (46-116); Anion Gap 8.9; Aspartate Amino Transferase 37 U/L (15-37); Blood Urea Nitrogen 14.0 mg/dL (7.0-18.0); Calcium 8.4 mg/dL (8.5-10.1); Carbon Dioxide 30.3 mmol/L (21.0-32.0); Chloride 108 mmol/L (98-107); Estimated GFR (African America >60 (>=60 mL/min/1.73m^2); Estimated GFR (Non-African Ame >60 (>=60 mL/min/1.73m^2); Globulin 2.8 g/dL; Glucose 81 mg/dL (74-106); Potassium 4.2 mmol/L (3.5-5.1); Sodium 143 mmol/L (136-145); Total Protein 5.8 g/dL (6.4-8.2)
== END 2025-01-28 14:12 | disposition home or self-care (01) ==
LOC: LAB 14:16
PROVIDERS: Visit Provider Nurse Practitioner Primary Care
DX: F10.20 Alcohol dependence, uncomplicated (principal); F14.20 Cocaine dependence, uncomplicated
CPT/HCPCS: 36415; 80053; 85025; 86317; 87340; 87389; 87522

== ENCOUNTER 2025-02-08 12:36 | Outpatient (OUT) | payer OTHER, SELFPAY ==
--- OUTSIDE RECORDS SUMMARY | 2020-11-20 08:10 | XMS_ITS | Continuity of Care Document ---
Author Organization [facility] rtment Address [address] [place] [address] Phone Care Team Providers Care Boat Diesel Motor Mechanic Name Role Phone Leigha Schaefer MD Unavailable Unavailable Procedures Procedure Date PFIZER SARSCOV2 VACCINE .3ML ADMN PFIZER SARSCOV2 .3ML 2ND DOSE PFIZER SARSCOV2 VACCINE .3ML ADMN PFIZER SARSCOV2 .3ML 1ST DOSE Advance Directives Directive Yes / No Effective Date File Name No Information Encounters Encounter Description Practice Location Reason(s) For Visit Diagnoses Date Provider Providers Copied on Encounter [facility] , [address] [place], [place], [id number], tel:[phone] [facility] Dept Immunization No Information 1 Silvano Ahuja. [address] [place], [place], [id number] , . tel:[phone] [facility] , [address] [place], [place], [id number], tel:[phone] [facility] Dept Immunization No Information 1 Silvano Ahuja. [address] [place], [place], [id number] , . tel:[phone] Family History Family Member Type Diagnosis Age At Onset No Information Immunizations Vaccine Date Status Comments Pfizer COVID-19 administered Note: TPVALL ; Source: New Immunization Record Pfizer BioNtech Covid !9 Vaccine administered Note: TPVALL ; Sourc e: New Immunization Record Payers Payer name Insurance type Covered green party ID Authoriza tion(s) No Information Social [...]
--- OUTSIDE RECORDS SUMMARY | 2024-05-14 16:30 | XMS_ITS ---
Author Organization [facility] Address [address] [place] [address] Care Team Providers Care Supervisor Finish End Name Role Phone Millicent Willis Primary Care Provider [phone] Oralia Teresa [phone] REASON FOR VISIT 1MTH FOLLOW UP Encounters Encounter Location Date Provider Diagnosis [facility] [address] [place] [address] 05/14/2024 Oralia Teresa Plan Of Treatment No Information Progress Notes * CHALO JOHNSONADOB: 3 (39 yo F)Acc No.[id number]:05/14/2024 Progress Notes Patient: RADHA FLOYD Provider: Kassi Teresa CNP :1985 A ge:39 Y S ex:Female Date:05/14/2024 [address] [facility] [place] Pcp:Millicent Willis Subjective: * Chief Complaints: * 1 . 1MTH FOLLOW UP. * Medical History: Objective: * Vitals: Assessment: Plan: * Treatment: * * Electronic signature of Oralia Teresa CNP on 02/08/2025 at 12:43 PM EDT Sign off status: Pending * Provider: Kassi Teresa CNP Date: Generated for Becky morales/Nguyen/eTransmitting on: 0 02/08/2025 12:43 PM EDT
--- OUTSIDE RECORDS SUMMARY | 2024-06-08 15:30 | XMS_ITS ---
Author Organization [facility] Address [address] [place] [address] Care Team Providers Care Gear Setter Name Role Phone Millicent Willis Primary Care Provider [phone] REASON FOR VISIT 4 wks, med refill Encounters Encounter Location Date Provider Diagnosis [facility] [address] [place] [address] 06/08/2024 Millicent Willis Plan Of Treatment No Information Progress Notes * ARPAN JOHNSONMELINDAJAMELB: 3 (39 yo F)Acc No.[id number]:06/08/2024 Progress Notes Patient: RADHA FLOYD Provider: Pyeton Willis CNP :1985 A ge:39 Y S ex:Female Date:06/08/2024 [address] [facility] Subjective: * Chief Complaints: * 1 . 4 wks, med refill. * Medical History: Objective: * Vitals: Assessment: Plan: * Treatment: * * Electronic signature of Michael Castellon CNP on 02/08/2025 at 12:43 PM EDT Sign off status: Pending * Provider: Peyton Willis CNP Date: 08/08/2023 Generated for Becky morales/Nguyen/eTkwakuitting on: 02/08/2025 12:43 PM EDT
--- OUTSIDE RECORDS SUMMARY | 2024-07-23 17:15 | XMS_ITS ---
Author Organization [facility] Address [address] [place] [address] Care Team Providers Care Critical Care Cns Name Role Phone Millicent Willis Primary Care Provider REASON FOR VISIT DISCUSS ZEPBOUND Encounters Encounter Location Date Provider Diagnosis [facility] [address] [place] [address] 07/23/2024 Millicent Willis Plan Of Treatment No Information Progress Notes * STEPHANI JOHNSONB: 3 (39 yo F)Acc No.[id number]:07/23/2024 Patient: RADHA FLOYD Provider: Peyton Willis CNP :1985 A ge:39 Y S ex:Female Date:07/23/2024 Address[address] [place] Subjective: * Chief Complaints: * 1 . DISCUSS ZEPBOUND. * Medical History: Objective: * Vitals: Assessment: Plan: * Treatment: * * Electronic signature of Michael Castellon CNP on 02/08/2025 at 12:44 PM EDT Sign off status: Pending * Provider: Peyton Willis CNP Date: 0 07/23/2024 Generated for Becky morales/Nguyen/Maria Estheritting on: 0 02/08/2025 12:44 PM EDT
--- OUTSIDE RECORDS SUMMARY | 2025-02-08 12:44 | XMS_ITS | Encounter Summary ---
Author Organization [facility] Address [address], [address] [place] [address] Care Team Providers Care Senior Drafter Name Role Phone Millicent Willis APRN - POLICE RADIO DISPATCHER Primary Care Provider [phone] Reason for Visit * Reason Onset Date Comments Medication Refill 01/26/2025 Encounter Details Date Type Department Care Team ([facility] st Contact Info) Description 01/26/2025 Telephone [facility] Obstetrics & Gynecology [address] [facility], [address] [place] [address] Candis Alberts PA-C [address] [place] [address] Medication Refill Social History Tobacco Use Types Packs/Day Years Used Date Smoking Tobacco: Every Day E-Cigarettes Smokeless Tobacco: Never Alcohol Use Standard Drinks/Week Comments Yes 0 (1 standard drink = 0.6 oz pur e alcohol) [facility] Utilities Answer Date Recorded In the past 12 months has e [employer], gas, oil, or water [employer] threatened to shut off services in your [...] any time in the past 12 m [facility], were you homeless or living in a half-way (including now)? No 08/03/2024 Food Insecurity Answer [...] on filedocumented in this encounter Care Teams Senior Drafter Relationship Specialty Start Date End Date Millicent Willis APRN - POLICE RADIO DISPATCHER [address] [place] [address] PCP - General Nurse Practitioner 11/27/23 documented as of this encounter
--- OUTSIDE RECORDS SUMMARY | 2025-02-08 12:44 | XMS_ITS | Patient Health Record ---
Author Organization [facility] l[facility] Address [address] [place] [address] Care Team Providers Care Disability Counselor Name Role Phone Millicent Willis Primary Care Provider [phone] YOANA TOMLINSON Unavailable [phone] Oralia Teresa Unavailable [phone] Allergies Allergen (clinical drug ingredient) Drug/Non Drug Allergy documented on EMR Reaction Allergy Type Onset Date Status Grass Mix Pollens Allergen Ext Unknown Drug Allergy Active Cat dander Cat Dander Unknown Allergy Active Dog dander Dog Dander Unknown Allergy Active Results Component Value Reference Range Notes Diff Auto Reviewed date:07/30/2024 08:31:09 AM Interpretation: Performing Lab: Notes/Report: [facility] (UNKNOWN) [address] [place] [address] Neutro Auto 75.0 47.2-70.8 % Lymph Auto 15.4 27.2-40.8 % Newton Auto 8.3 3.7-11.9 % Eos Auto 0.7 0.0-5.4 % Basophil Auto 0.6 0.0-1.5 % Neutro Absolute 7.1 1.8-7.7 x10*3/mcL Lymph Absolute 1.5 1.0-4.8 x10*3/mcL Newton Absolute 0.8 0.1-1.1 x10*3/mcL Eos Absolute 0.1 0.0-0.4 x10*3/mcL Baso Absolute 0.1 0.0-0.2 x10*3/mcL Total Iron Binding Capacity Reviewed date:07/30/2024 08:31:09 AM Interpretation: Performing Lab: Notes/Report: [facility] [address] [place] [address] Iron Sat 11.5 >=16.0 % TIBC 253 261-478 mcg/dL Transferrin 181 192-382 mg/dL Iron 29 28-170 mcg/dL Ferritin Reviewed date:07/30/2024 08:31:09 AM Interpretation: Performing Lab: Notes/Report: [address] [address] Ferritin Lvl 279.2 11.0-306.8 ng/mL Complete Blood Count w Diffe rential Reviewed date:07/30/2024 08:31:09 AM Interpretation: Performing Lab: Notes/Report: [facility] ([facility]KNOWN) [address] [place] [address] WBC 9.5 4.5-11.0 x10*3/mcL RBC 4.11 3.80-5.20 [...] w/ IV Contrast, 07/19/2024, 8:49 AM EST. Surgical Pathology Report Reviewed date:03/11/2024 12:42:25 PM Interpretation: Performing Lab: Notes/Report: [facility] (DEFAULT) [address] [place] [address] Note : 1985 [facility] Patient Name: Radha Pierson Surgical Pathology Report Part B: Received in formalin labeled 'random gastric biopsies' are four pieces of light ochoa tissue measuring 0.1 to 0.5 cm in greatest dimension. The specimen is entirely submitted in cassette B1. (Electronically signed by) [id number] Clinical Information [id number] C GE junction biopsies SP Specimen Part C: Gastroesophageal junction, biopsies: Mild chronic inflammation. Part B: Sections examined at multiple levels show fragments of gastric mucosa showing lamina propria with mildly increased lymphocytes, plasma cells and scattered eosinophils. The glandular epithelium shows slight reactive changes. There is no evidence of acute inflammation or granulomatous disease. There is no evidence of dysplasia or malignancy. No Helicobacter pylori is seen on the H Joann Duarte MD PhD Part C: Sections examined at multiple levels show fragments of gastroesophageal junctional zone mucosa. The squamous epithelium shows very rare eosinophils.. The glandular mucosa shows distended lamina propria with mild chronic inflammation. No significant acute inflammation is noted. There is no evidence of intestinal metaplasia, dysplasia or malignancy. Pre-operative diagnosis: dyspepsia Microscopic Description Part C: Received in formalin labeled 'GE junction biopsies' are three pieces of light ochoa tissue measuring 0.2 to 0.3 cm in greatest dimension. The specimen is entirely submitted in cassette C1. B Random gastric biopsies Part B: Stomach, random biopsies: Mild chronic inflammation. Part A: Sections examined at multiple levels show fragments of duodenal mucosa showing no significant villous shortening. The lamina propria shows a normal amount of chronic inflammatory cells. There is no evidence of acute inflammation or granulomatous disease. There is no evidence of dysplasia or malignancy. There is no evidence of celiac disease. Diagnosis Verified: 03/10/24 14:47 Part A: Received in formalin labeled 'random duodenal biopsies' are four pieces of light ochoa tissue measuring 0.2 to 0.3 cm in greatest dimension. The specimen is entirely submitted in cassette A1. Procedure: EGD A Random duodenal biopsies Gross Description Part A: Duodenum, biopsies: No significant pathologic change. Hep Bs Ag Reviewed date:02/16/2024 02:17:22 PM Interpretation: Performing Lab: Notes/Report: [facility] [address] [place] [address] Hep Bs Ag Interp Non-Reactive Non-Reactive Diff Auto Reviewed date:02/16/2024 02:17:22 PM Interpretation: Performing Lab: Notes/Report: [facility] ([facility]) [address] [place] [address] Neutro Auto 63.3 47.2-70.8 % Lymph Auto 27.1 27.2-40.8 % Newton Auto 5.0 3.7-11.9 % Eos Auto 3.5 0.0-5.4 % Basophil Auto 1.1 0.0-1.5 % Neutro Absolute 4.0 1.8-7.7 x10*3/mcL Lymph Absolute 1.7 1.0-4.8 x10*3/mcL Newton Absolute 0.3 0.1-1.1 x10*3/mcL Eos Absolute 0.2 0.0-0.4 x10*3/mcL Baso Absolute 0.1 0.0-0.2 x10*3/mcL .eGFR Reviewed date:02/16/2024 02:17:22 PM Interpretation: Performing Lab: Notes/Report: [facility] ([facility]) [address] [place] [address] Estimated GFR >60 >=60 mL/min/1.73m? [facility] Laboratories have implemented the eGFR calculation approach that does not have a coefficient for race and that conforms to the NKF-ASN Task Force Recommendations. min = indicates the minimum of SCr/? or 1 SCr (standardized serum creatinine) = mg/dL eGFR = 142 X min(SCr/?, 1)? X max(SCr /?, 1)-1.200 X 0.9938Age X 1.012 [if female] ? = 0.7 (females) or 0.9 (males) Abbreviations/Units: max = indicates the maximum of SCr/? or 1 Stage 3b Moderate to severe loss of kidney function 44 to 33 Stage 4 Severe loss of kidney function 29 to 15 eGFR (estimated glomerular filtration rate) = mL/min/1.73 m2 GFR calculated using the CKD-Epi Creatinine Equation (2020): Stages of Chronic Kidney Disease GFR Stage 5 Kidney failure Less than 15 Stage 3a Mild to moderate loss of kidney function 59 to 45 ? = -0.241 (females) or -0.302 (males) Age = years CMP Reviewed date:02/16/2024 02:17:22 PM Interpretation: Performing Lab: Notes/Report: [facility] ([facility]) [address] [place] [address] Sodium Lvl 138 136-145 mmol/L Potassium Lvl [...] date:02/16/2024 02:17:22 PM Interpretation: Performing Lab: Notes/Report: [address] [address] Iron Sat 25.1 >=16.0 % TIBC 319 261-478 mcg/dL Transferrin 228 192-382 mg/dL Iron 80 28-170 mcg/dL Ferritin Reviewed date:02/16/2024 02:17:22 PM Interpretation: Performing Lab: Notes/Report: [address] [address] Ferritin Lvl 44.4 11.0-306.8 ng/mL Complete Blood Count ashu villareal Reviewed date:02/16/2024 02:17:22 PM Interpretation: Performing Lab: Notes/Report: [facility] ([facility]) [address] [place] [address] WBC 6.4 4.5-11.0 x10*3/mcL RBC 4.58 3.80-5.20 x10*6/mcL Hgb 12.9 12.0-16.0 g/dL Hct 39.8 36.0-46.0 % MCV 86.8 80.0-100.0 fL MCH 28.2 27.0-35.0 pg MCHC 32.5 31.0-37.0 % Platelet 285 150-450 x10*3/mcL RDW 20.8 11.6-14.8 % Mean Platelet Volume 7.4 6.7-10.6 fL C SUKHJINDER Reviewed date:11/16/2024 08:31:20 AM Interpretation: Performing Lab: Notes/Report: [address] [address] Note : 1985 Patient Name: Radha Pierson [facility] C SUKHJINDER See Below For Report No anaerobic organisms isolated. Final C SUKHJINDER Reviewed date:11/16/2024 08:31:21 AM Interpretation: Performing Lab: Notes/Report: [facility] [address] [place] [id number] Note : 1985 Patient Name: Radha Pierson [facility] C SUKHJINDER See Below For Report Final No anaerobic organisms isolated. Body Fluid Creatinine Reviewed date:11/08/2024 08:33:01 AM Interpretation: Performing Lab: Notes/Report: [place] [address] Creatinine Body Fluid Type Peritoneal Creatinine Body Fluid 0.6 Dinah Trn [facility] Reviewed date:08/06/2024 01:00:05 PM Interpretation: Performing Lab: Notes/Report: [facility] [address] [place] [address] Soluble Transferrin Receptor (sTfR)-[place] 3.7 1.8 - 4.6 mg/L [address] [place], [place] [id number] Sheeter Waxer Operator: Jose C Hassan Ph.D.; CLIA# [id number] ADDITI ONAL INFORMATION ----- [facility] higher values. It is reported that Americans may have slightly Test Performed by: Diff Auto Reviewed date:05/12/2024 12:35:21 PM Interpretation: Performing Lab: Notes/Report: [facility] ([facility]) [address] [place] [id number] Neutro Auto 60.8 47.2-70.8 % Lymph Auto 25.2 27.2-40.8 % Newton Auto 6.3 3.7-11.9 % Eos Auto 6.8 0.0-5.4 % Basophil Auto 0.9 0.0-1.5 % Neutro Absolute 4.1 1.8-7.7 x10*3/mcL Lymph Absolute 1.7 1.0-4.8 x10*3/mcL Newton Absolute 0.4 0.1-1.1 x10*3/mcL Eos Absolute 0.5 0.0-0.4 x10*3/mcL Baso Absolute 0.1 0.0-0.2 x10*3/mcL .eGFR Reviewed date:05/12/2024 12:45:58 PM Interpretation: Performing Lab: Notes/Report: [facility] ([facility]) [address] [place] [address] Estimated GFR >60 >=60 mL/min/1.73m? ? = 0.7 (females) or 0.9 (males) [facility] Laboratories have implemented the eGFR calculation approach that does not have a coefficient for race and that conforms to the NKF-ASN Task Force Recommendations. SCr (standardized serum creatinine) = mg/dL eGFR = 142 X min(SCr/?, 1)? X max(SCr /?, 1)-1.200 X 0.9938Age X 1.012 [if female] Stage 4 Severe loss of kidney function 29 to 15 Abbreviations/Units: GFR calculated using the CKD-Epi Creatinine Equation (2020): Stage 3b Moderate to severe loss of kidney function 44 to 33 max = indicates the maximum of SCr/? or 1 eGFR (estimated glomerular filtration rate) = mL/min/1.73 m2 Stages of Chronic Kidney Disease GFR ? = -0.241 (females) or -0.302 (males) Stage 3a Mild to moderate loss of kidney function 59 to 45 min = indicates the minimum of SCr/? or 1 Age = years Stage 5 Kidney failure Less than 15 CMP Reviewed date:05/12/2024 12:45:58 PM Interpretation: Performing Lab: Notes/Report: [facility] ([facility]) [address] [place] [address] Sodium Lvl 138 136-145 mmol/L Potassium Lvl [...] date:05/14/2024 07:46:38 AM Interpretation: Performing Lab: Notes/Report: [address] [address] Iron Sat 10.6 >=16.0 % TIBC 339 261-478 mcg/dL Transferrin 242 192-382 mg/dL Iron 36 28-170 mcg/dL Ferritin Reviewed date:05/14/2024 07:46:38 AM Interpretation: Performing Lab: Notes/Report: [address] [address] Ferritin Lvl 15.9 11.0-306.8 ng/mL Complete Blood Count w Emileee mono Reviewed date:05/12/2024 12:35:20 PM Interpretation: Performing Lab: Notes/Report: [facility] ([facility]) [address] [place] [address] WBC 6.7 4.5-11.0 x10*3/mcL RBC 4.70 3.80-5.20 x10*6/mcL Hgb 13.5 12.0-16.0 g/dL Hct 41.7 36.0-46.0 % MCV 88.8 80.0-100.0 fL MCH 28.7 27.0-35.0 pg MCHC 32.3 31.0-37.0 % Platelet 389 150-450 x10*3/mcL RDW 14.6 11.6-14.8 % Mean Platelet Volume 8.2 6.7-10.6 fL Diff Auto Reviewed date:11/08/2024 08:33:01 AM Interpretation: Performing Lab: Notes/Report: [address] [address] Neutro Auto 75.8 47.2-70.8 % Lymph Auto 18.0 27.2-40.8 % Newton Auto 5.5 3.7-11.9 % Eos Auto 0.4 0.0-5.4 % Basophil Auto 0.3 0.0-1.5 % Neutro Absolute 6.9 1.8-7.7 x10*3/mcL Lymph Absolute 1.6 1.0-4.8 x10*3/mcL Newton Absolute 0.5 0.1-1.1 x10*3/mcL Eos Absolute 0.0 0.0-0.4 x10*3/mcL Baso Absolute 0.0 0.0-0.2 x10*3/mcL Complete Blood Count w Diffe rential Reviewed date:11/08/2024 08:33:01 AM Interpretation: Performing Lab: Notes/Report: [place] [id number] WBC 9.1 4.5-11.0 x10*3/mcL RBC 4.14 3.80-5.20 x10*6/mcL Hgb 12.2 12.0-16.0 g/dL Hct 35.4 36.0-46.0 % MCV 85.5 80.0-100.0 fL MCH 29.4 27.0-35.0 pg MCHC 34.4 31.0-37.0 % Platelet 246 150-450 x10*3/mcL RDW 15.9 11.6-14.8 % Mean Platelet Volume 8.2 6.7-10.6 fL C Bld Reviewed date:11/19/2024 08:08:32 AM Interpretation: Performing Lab: Notes/Report: [facility] (DEFAULT) [address] [place] [address] [address] Note [facility] : 1985 Patient Name: Radha Shi Willson Bld per jenni saavedra disregard request for lab to draw 11/05/2024 06:27:11 EDT Final No growth at 5 days. C Bld See Below For Report Final No growth at 5 days. C Sterile BF Reviewed date:11/16/2024 08:31:20 AM Interpretation: Performing Lab: Notes/Report: [address] [address] Note Patient Name: Radha Pierson : 1985 [facility] C Sterile BF See Below For Report Gram Stain No growth at 72 hours. Final Many White Blood Cells C Sterile BF See Below For Report Gram Stain No growth at 72 hours. Final Many White Blood Cells C Sterile BF No organisms seen. Gram Stain No growth at 72 hours. Final Many White Blood Cells CT Abdomen Pelvis w/ IV Cont rast Reviewed date:11/08/2024 08:33:01 AM Interpretation: Performing Lab: Notes/Report: Patient Name: Radha Pierson EXAM: CT Abdomen Pelvis w/ IV Contrast .Fld pH Reviewed date:11/08/2024 08:33:01 AM Interpretation: Performing Lab: Notes/Report: [place] [address] pH Body Fluid 7.55 C Sterile BF Reviewed date:11/16/2024 08:31:21 AM Interpretation: Performing Lab: Notes/Report: [place] [address] Note Patient Name: Radha Pierson [facility] : 1985 C Sterile BF See Below For Report Gram Stain No growth at 72 hours. Final Many White Blood Cells C Sterile BF See Below For Report Gram Stain No growth at 72 hours. Final Many White Blood Cells C Sterile BF No organisms seen. Gram Stain No growth at 72 hours. Final Many White Blood Cells C Bld Reviewed date:11/19/2024 08:08:32 AM Interpretation: Performing Lab: Notes/Report: [facility] [address] [place] [address] Note [facility] Patient Name: Radha Pierson : 1985 C Bld See Below For Report Final No growth at 5 days. Surgical Pathology Report Reviewed date:11/10/2024 08:34:54 AM Interpretation: Performing Lab: Notes/Report: [facility] (DEFAULT) [address] [place] [address] Note [facility] Patient Name: Radha Pierson : 1985 Surgical Pathology Report SP Specimen [id number] Diagnosis Pre-operative diagnosis: Vaginal dehiscence The vaginal cuff trimmings show vaginal mucosa with ulceration and acute and chronic inflammation and foreign body giant cell reaction to refractile material. There is no evidence of malignancy. [id number] A Vaginal Cuff Trimmings Microscopic Description Clinical Information Received in formalin labeled 'vaginal cuff trimmings' are multiple pieces of unoriented pink-ochoa tissue measuring in aggregate 1.5 x 1.0 x 0.6 cm. Fragments of tissue measure 0.5 x 0.3 x 0.2 cm and 1.5 x 0.3 x 0.2 cm. The excision margin of each piece of tissue is painted with black ink. The specimen is entirely submitted intact in cassettes A1-A3. Vaginal cuff trimmings from vaginal dehiscence: Vaginal mucosa with ulceration. Acute and chronic inflammation and foreign body giant cell reaction to refractile foreign material in the underlying soft tissue. Kathrine Irizarry MD [id number] (Electronically signed by) Verified: 11/09/24 12:33 Gross Description [id number] Procedure: Diagnostic laparoscopy robotic Body Fluid Panel Reviewed date:11/08/2024 08:33:01 AM Interpretation: Performing Lab: Notes/Report: vaginal fluid from vaginal defect and peritoneal drainage Wants Creatinine [facility] [address] [place] [address] Fld Panel Body Fluid Type Other The reference range and analytic accuracy have not been established for these tests in this sample type. The test results should be interpreted based on clinical context. Glucose Body Fluid 11 LDH Body Fluid 410 Protein Body Fluid <3.0 Reason For Referral No Information Medications Medication [...] a day; Duration: 30 day(s) 10/14/2023 Active Ftwbqppif-Tcwlplkx-OD 30-2-10 MG/5ML 10ml Orally every 6 hours [...] Status Risk Notes Problem Vitamin D deficiency (97789117) Vitamin D deficiency (E55.9) Active confirmed Problem Endometriosis (520425976) Endometriosis (N80.9) Active confirmed Problem Iron deficiency anemia (30571295) Iron deficiency anemia, unspecified iron deficiency anemia type (D50.9) Active confirmed Problem Seasonal allergy (884829570) Seasonal allergies (J30.2) Active confirmed Problem Allergic rhinitis (00263896) Allergic rhinitis, unspecified seasonality, unspecified trigger (J30.9) Active confirmed Problem Multiple thyroid nodules (539313059) Multiple thyroid nodules (E04.2) Active confirmed Problem History of anemia (676373335) History of anemia (Z86.2) Active confirmed Problem History of gestational diabetes mellitus (884702873) History of gestational diabetes (Z86.32) Active confirmed Vital Signs Heart Rate 84 /min 05/11/2024 Temperature 98.0 degrees Fahrenheit 05/11/2024 Respiratory Rate 17 /min 05/11/2024 Oximetry 98 % 05/11/2024 Blood pressure diastolic 89 mm Hg 05/11/2024 Height 65 in 05/11/2024 Blood pressure systolic 134 mm Hg 05/11/2024 Weight 203.6 lbs 05/11/2024 BMI 33.88 kg/m2 05/11/2024 Encounters Encounter Location Date Provider Diagnosis [address] [address] 04/12/2024 Oralia Teresa Seasonal allergies J30.2 and Abnormal weight gain R63.[address] [address] 02/16/2024 Oralia Teresa Abnormal weight gain R63.5 ; Poison kedar dermatitis L23.7 and Seasonal allergies J30.[address] [address] 05/11/2024 Millicent Willis Abnormal weight gain R63.5 and Upper respiratory infection J06.[address] [address] 07/22/2024 Millicent Willis [address] [address] 03/02/2024 Oralia Teresa Abnormal weight gain R63.[address] [address] 02/11/2024 Millicent Willis Allergic rhinitis, unspecified seasonality, unspecified trigger J30.9 and Low vitamin B12 level R79.89 Assessments Encounter Date Diagnosis (ICD Code) Assessment [...] Insured Coverage Start Date Coverage End Date [facility] [address] [place] [phone] [id number] RADHA PIERSON Self - patient is the insured Medical (General) History Medical History History ICD Code 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
--- OUTSIDE RECORDS SUMMARY | 2025-02-08 12:44 | XMS_ITS | Clinical Summary ---
Author Organization [facility] Address [address], [address] [place] [address] Care Team Providers Care Mounter Hand Name Role Phone Millicent Willis APRN - RN SUPPORT SERVICES Primary Care Provider [phone] Allergies Active Allergy Reactions Criticality Noted Date [...] Type Department Care Team Description 01/26/2025 Telephone [facility] Obstetrics & Gynecology [address], [address] [place] [address] Candis Alberts PA-C Medication Refill 12/15/2024 Orders Only [facility] Obstetrics & Gynecology [address], [address] [place] [address] Candis Alberts PA-C 12/15/2024 Results Follow-Up [facility] Obstetrics & Gynecology [address], [address] [place] [address] Candis Alberts PA-C 12/14/2024 7:24 PM EDT - 12/14/2024 11:59 PM EDT Hospital Encounter [facility] [address] [place] [address] Vaginal discharge Discharge Disposition: Home or Self Care 12/14/2024 1:15 PM EDT Office Visit [facility] Ob[facility]etrics & Gynecology [address], [address] [place] [address] Candis Alberts PA-C Vaginal discharge (Primary Dx) 11/09/2024 1:45 PM EDT Office Visit [facility] Ob[facility]etrics & Gynecology [address], [address] [place] [address] Candis Alberts PA-C Dehiscence of vaginal cuff, [...] drink = 0.6 oz pur e alcohol) [facility] Utilities Answer Date Recorded In the past 12 months has [employer], gas, oil, or water [employer] threatened to shut off services in your [...] No 08/03/2024 Housing Stability Vital Sign Answer Cmaeron e Recorded In the last 12 months, was t here a time when you were not able to pay the mortgage or rent on time? No 08/03/2024 In the past 12 months, how m any times have you moved where you were living? 0 08/03/2024 At any time in the past 12 m [facility], were you homeless or living in a assisted (including now)? No 08/03/2024 Food Insecurity Answer [...] HIGH RISK Routine 02/05/2024 12:00 AM EDT LOGISTICS PLANNING ENGINEER CYTOLOGY Routine 02/05/2024 12:00 AM EDT from Last 3 Months or Most Recently Relevant to Health Maintenance Results * (ABNORMAL) Vaginitis DNA Probe (12/14/2024 7:48 PM EDT) Source .VAGINAL SWAB 12/14/2024 7:48 PM EDT DNA SEQ Trichomonas NEGATIVE NEGATIVE 12/14/2024 7:48 PM EDT DNA SEQ Comment:for Trichomonas Vagi nalis GARDNERELLA VAGINALIS POSITIVE(A) NEGATIVE 12/14/2024 7:48 PM EDT DNA SEQ Comment:for Gardnerella vagi nalis Kim species NEGATIVE NEGATIVE 7:48 PM EDT DNA SEQ Comment: for Kim sp. Method of testing is a DNA probe intended for detection and identification of Kim species, Gardnerella vaginalis, and Trichomonas vaginalis nucleic acid in vaginal fluid specimens from patients with symptoms of vaginitis/vaginosis. SPECIMEN FROM CERVIX OR VAGINA / Unknown 12/14/2024 7:48 PM EDT 12/14/2024 7:48 PM EDT Candis Alberts PA-C MICROBIOLOGY - GENERAL O RDERABLES Final Result DNA SEQ [address] [phone] * Human papillomavirus (HPV) DNA probe thin prep high risk (02/05/2024 12:00 AM EDT) Specimen Description CERVICAL MATERIAL 02/05/2024 12:00 AM EDT DNA SEQ HPV Sample .THIN PREP 02/05/2024 12:00 AM EDT DNA SEQ HPV, Genotype 16 Not Detected Not Detected 02/05/2024 12:00 AM EDT DNA SEQ HPV, Genotype 18 Not Detected Not Detected 02/05/2024 12:00 AM EDT DNA SEQ HPV, High Risk Other Not Detected Not Detected 02/05/2024 12:00 AM EDT DNA SEQ HPV, Interpretation 02/05/2024 12:00 AM EDT DNA SEQ Comment: This test amplifies and detects DNA [...] Alberts PA-C HEMATOLOGY ORDERABLES Fi nal Result DNA SEQ [address] [place] [address] * LOGISTICS PLANNING ENGINEER Cytology (02/05/2024 12:00 AM EDT) Cytology Report Path Number: [id number] DIAGNOSIS Imaged ThinPrep Pap - Cervical (1 [...] or for other forensic purposes. Performed at [address] [id number] . Source of Specimen: A: Imaged ThinPrep Pap - Cervical (1 monolayer slide) HPV Reflex?........... ...........HPV Regardless Clinical History Z01.419 Routine event planner exam without abnormal findings LMP: 12/16/2023 Processing Lab: [address] [address] Interpretation performed at [address] [address] This Pap Test has been evaluated with [...] GYNECOLOGIC CYTOLOGY REPORT Patient Name: JEIMY PIERSON [facility] Rec: [id number] [facility] [employer] [facility] ANATOMIC PATHOLOGY [address] [place] [address]. [place], [place] [address] [facility] CERVICAL MATERIAL 02/05/2024 024 6:51 AM EDT us Candis Alberts PA-C PATHOLOGY/CYTOLOGY ORDER BRYCE Final Result DNA SEQ [address] [place] [address], [facility] [phone] YUDI REDDY [employer] LABS from Last 3 Months or Most Recently Relevant to Health Maintenance Insurance [employer] Advance Directives * Full Code (Latest Code Status on File) Date Activated Date Inactivated Comments 07/12/2024 10:34 AM 07/12/2024 5:11 PM Care Teams Mounter Hand Relationship Specialty Start Date End Date Millicent Willis APRN - TAMI [address] [place] [address] PCP - General Nurse Practitioner 11/27/23
--- OUTSIDE RECORDS SUMMARY | 2025-02-08 12:44 | XMS_ITS | Encounter Summary ---
Author Organization [facility] Address [address] [facility], [address] [place] [address] Care Team Providers Care Radio Program Director Name Role Phone Millicent Willis APRN - FORMATION FRACTURING OPERATOR Primary Care Provider [phone] Encounter Details Date Type Department Care Team ([facility] Contact Info) Description 12/15/2024 Results Follow-Up [facility] Obstetrics & Gynecology [address] [facility], [address] [place] [address] Candis Alberts PA-C [address] [place] [address] Social History Tobacco Use Types Packs/Day Years Used Date Smoking Tobacco: Every Day E-Cigarettes Smokeless Tobacco: Never Alcohol Use Standard Drinks/Week Comments Yes 0 (1 standard drink = 0.6 oz pur e alcohol) [facility] Utilities Answer Date Recorded In the past 12 months has [facility], gas, oil, or water [employer] threatened to shut off services in your [...] any time in the past 12 m [facility], were you homeless or living in a halfway (including now)? No 08/03/2024 Food Insecurity Answer [...] on filedocumented in this encounter Care Teams Radio Program Director Relationship Specialty Start Date End Date Millicent Willis APRN - FORMATION FRACTURING OPERATOR [address] [place] [address] PCP - General Nurse Practitioner 11/27/23 documented as of this encounter
[2025-02-08 13:26] LABS: Hematocrit 41.7 % (36.0-48.0); Hemoglobin 13.7 g/dL (12.0-16.0); Immature Granulocytes Abs Auto 0.01 10^3/uL (0.00-0.03); Immature Granulocytes Pct Auto 0.2 % (0.0-0.5); Lymphocytes Absolute Auto 2.1 10^3/uL (1.2-3.8); Mean Corpuscular HGB Conc 32.9 g/dL (29.9-35.2); Mean Corpuscular Hemoglobin 28.9 pg (26.7-34.0); Mean Corpuscular Volume 88.0 fL (81.0-99.0); Platelet Count 313 10^3/uL (150-450); Red Blood Count 4.74 10^6/uL (4.20-5.40); White Blood Count 5.2 10^3/uL (4.0-11.0)
[2025-02-08 15:01] LABS: Iron 75.0 ug/dL (50.0-170.0); Percent Iron Saturation 24.8 %; Total Iron Binding Capacity 302.0 ug/dL (250.0-450.0)
== END 2025-02-08 12:37 | disposition home or self-care (01) ==
LOC: LAB 12:41
DX: D50.9 Iron deficiency anemia, unspecified (principal)
CPT/HCPCS: 36415; 83540; 83550; 84238; 85025

== ENCOUNTER 2025-02-25 12:37 | Emergency (ER) | payer OTHER, SELFPAY ==
--- OUTSIDE RECORDS SUMMARY | 2020-11-20 08:10 | XMS_ITS | Continuity of Care Document ---
Author Organization [facility] rtment Address [address] [place] [address] Phone Care Team Providers Care Contracts Officer Name Role Phone Leigha Schaefer MD Unavailable Unavailable Procedures Procedure Date PFIZER SARSCOV2 VACCINE .3ML ADMN PFIZER SARSCOV2 .3ML 2ND DOSE PFIZER SARSCOV2 VACCINE .3ML ADMN PFIZER SARSCOV2 .3ML 1ST DOSE Advance Directives Directive Yes / No Effective Date File Name No Information Encounters Encounter Description Practice Location Reason(s) For Visit Diagnoses Date Provider Providers Copied on Encounter [facility] , [address] [place], [place], [id number], tel:[phone] [facility][1] Dept Immunization No Information 1 Silvano Ahuja. [address] [place], [place], [id number] , . tel:[phone] [facility] , [address] [place], [place], [id number], tel:[phone] [facility][1] Dept Immunization No Information 1 Silvano Ahuja. [address] [place], [place], [id number] , . tel:[phone] Family History Family Member Type Diagnosis Age At Onset No Information Immunizations Vaccine Date Status Comments Pfizer COVID-19 administered Note: TPVALL ; Source: New Immunization Record Pfizer BioNtech Covid !9 Vaccine administered Note: TPVALL ; Sourc e: New Immunization Record Payers Payer name Insurance type Covered republican ID Authoriza tion(s) No Information Social History [...]
--- OUTSIDE RECORDS SUMMARY | 2024-05-14 16:30 | XMS_ITS ---
Author Organization [facility] Address [address] [place] [address] Care Team Providers Care Ice Skating Coach Name Role Phone Millicent Willis Primary Care Provider [phone] Oralia Teresa [phone] REASON FOR VISIT 1MTH FOLLOW UP Encounters Encounter Location Date Provider Diagnosis [facility] [address] [place] [address] 05/14/2024 Oralia Teresa Plan Of Treatment No Information Progress Notes * CHALO JOHNSONADOB: 3 (39 yo F)Acc No.[id number]:05/14/2024 Progress Notes Patient: RADHA FLOYD Provider: Kassi Teresa CNP :1985 A ge:39 Y S ex:Female Date:05/14/2024 [address] [facility] Pcp:Millicent Willis Subjective: * Chief Complaints: * 1 . 1MTH FOLLOW UP. * Medical History: Objective: * Vitals: Assessment: Plan: * Treatment: * * Electronic signature of Oralia Teresa CNP on 02/25/2025 at 12:42 PM EDT Sign off status: Pending * Provider: Kassi Teresa CNP Date: Generated for Becky morales/Nguyen/eTransmitting on: 0 02/25/2025 12:42 PM EDT
--- OUTSIDE RECORDS SUMMARY | 2024-07-23 17:15 | XMS_ITS ---
Author Organization [facility] Address [address] [place] [address] Care Team Providers Care Process Control Supervisor Name Role Phone Millicent Willis Primary Care Provider [phone] REASON FOR VISIT DISCUSS ZEPBOUND Encounters Encounter Location Date Provider Diagnosis [facility] [address] [place] [address] 07/23/2024 Millicent Willis Plan Of Treatment No Information Progress Notes * CHALO JOHNSONADOB: 3 (39 yo F)Acc No.[id number]:07/23/2024 Patient: RADHA FLOYD Provider: Peyton Willis CNP :1985 A ge:39 Y S ex:Female Date:07/23/2024 Address[address] [place], [place] Subjective: * Chief Complaints: * 1 . DISCUSS ZEPBOUND. * Medical History: Objective: * Vitals: Assessment: Plan: * Treatment: * * Electronic signature of Michael Castellon CNP on 02/25/2025 at 12:43 PM EDT Sign off status: Pending * Provider: Peyton Willis CNP Date: 0 07/23/2024 Generated for Becky morales/Nguyen/Maria Estheritting on: 02/25/2025 12:43 PM EDT
--- OUTSIDE RECORDS SUMMARY | 2025-02-25 12:43 | XMS_ITS | Encounter Summary ---
Author Organization [facility] Address [address] [place] [address] Care Team Providers Care Online Community Manager Name Role Phone Unavailable Primary Care Provider Unavailabl e Source Comments In the event this information is protected by the Federal Confidentiality of Alcohol and Drug AbusePatient Records regulations: The Federal rules restrict any use of the information to criminally investigate or prosecute any alcohol or drug abuse patient.[facility] Encounter Details Date Type Department Care Team (Late st Contact Info) Description 02/25/2025 Lab Requisition [facility] [place] [address] Stewart Hernández, PhD [address] [place] [address] Social History Tobacco Use Types Packs/Day Years Used Date Smoking Tobacco: Never Assessed Comments Unknown Sex and Gender Information Value Date Recorded Sex Assigned at Not on file Legal Sex Female 11:59 AM EDT Gender Identity Not on file Sexual Orientation Not on file documented as of this encounter Plan of Treatment Scheduled Orders Name Type Priority Associated Diagnoses Orde r Schedule BLOOD TB SCREEN, INCUBATED Lab Routine Ordered: 02/25/2025 documented as of this encounter Visit Diagnoses Not on filedocumented in this encounter
--- OUTSIDE RECORDS SUMMARY | 2025-02-25 12:43 | XMS_ITS | Patient Health Record ---
Author Organization [facility] Address [address] [place] [address] Care Team Providers Care Restaurant Area Manager Name Role Phone Millicent Willis Primary Care Provider YOANA TOMLINSON Unavailable [phone] Oralia Teresa Unavailable [phone] Allergies Allergen (clinical drug ingredient) Drug/Non Drug Allergy documented on EMR Reaction Allergy Type Onset Date Status Grass Mix Pollens Allergen Ext Unknown Drug Allergy Active Cat dander Cat Dander Unknown Allergy Active Dog dander Dog Dander Unknown Allergy Active Results Component Value Reference Range Notes Surgical Pathology Report Reviewed date:03/11/2024 12:42:25 PM Interpretation: Performing Lab: Notes/Report: [facility] (DEFAULT) [address] [place] [address] Note : 1985 [facility] Patient Name: Radha Pierson Surgical Pathology Report Part B: Received in formalin labeled 'random gastric biopsies' are four pieces of light ochoa tissue measuring 0.1 to 0.5 cm in greatest dimension. The specimen is entirely submitted in cassette B1. (Electronically signed by) [id number] Clinical Information [id number] C GE junction biopsies SP Specimen Part [...] A: Duodenum, biopsies: No significant pathologic change. Diff Auto Reviewed date:07/30/2024 08:31:09 AM Interpretation: Performing Lab: Notes/Report: [facility] (UNKNOWN) [address] [place] [address] Neutro Auto 75.0 47.2-70.8 % Lymph Auto 15.4 27.2-40.8 % Hodgeman Auto 8.3 3.7-11.9 % Eos Auto 0.7 0.0-5.4 % Basophil Auto 0.6 0.0-1.5 % Neutro Absolute 7.1 1.8-7.7 x10*3/mcL Lymph Absolute 1.5 1.0-4.8 x10*3/mcL Hodgeman Absolute 0.8 0.1-1.1 x10*3/mcL Eos Absolute 0.1 0.0-0.4 x10*3/mcL Baso Absolute 0.1 0.0-0.2 x10*3/mcL Complete Blood Count w Diffe rential Reviewed date:07/30/2024 08:31:09 AM Interpretation: Performing Lab: Notes/Report: [facility] (UNKNOWN) [address] [place] [address] WBC 9.5 4.5-11.0 x10*3/mcL RBC 4.11 3.80-5.20 [...] 07/19/2024, 8:49 AM EST. Diff Auto Reviewed date:05/12/2024 12:35:21 PM Interpretation: Performing Lab: Notes/Report: [facility] (UNKNOWN) [address] [place] [address] Neutro Auto 60.8 47.2-70.8 % Lymph Auto 25.2 27.2-40.8 % Hodgeman Auto 6.3 3.7-11.9 % Eos Auto 6.8 0.0-5.4 % Basophil Auto 0.9 0.0-1.5 % Neutro Absolute 4.1 1.8-7.7 x10*3/mcL Lymph Absolute 1.7 1.0-4.8 x10*3/mcL Hodgeman Absolute 0.4 0.1-1.1 x10*3/mcL Eos Absolute 0.5 0.0-0.4 x10*3/mcL Baso Absolute 0.1 0.0-0.2 x10*3/mcL .eGFR Reviewed date:05/12/2024 12:45:58 PM Interpretation: Performing Lab: Notes/Report: [facility] (UNKNOWN) [address] [place] [address] Estimated GFR >60 >=60 mL/min/1.73m? ? = 0.7 (females) or 0.9 (males) [facility] Laboratories have implemented the eGFR calculation [...] date:05/12/2024 12:45:58 PM Interpretation: Performing Lab: Notes/Report: [facility] (UNKNOWN) [address] [place] [address] Sodium Lvl 138 136-145 mmol/L Potassium Lvl [...] date:05/14/2024 07:46:38 AM Interpretation: Performing Lab: Notes/Report: [facility] [address] [place] [address] Iron Sat 10.6 >=16.0 % TIBC 339 261-478 mcg/dL Transferrin 242 192-382 mg/dL Iron 36 28-170 mcg/dL Ferritin Reviewed date:05/14/2024 07:46:38 AM Interpretation: Performing Lab: Notes/Report: [facility] [address] [place] [address] Ferritin Lvl 15.9 11.0-306.8 ng/mL Complete Blood Count w Diffe rential Reviewed date:05/12/2024 12:35:20 PM Interpretation: Performing Lab: Notes/Report: [facility] (UNKNOWN) [address] [place] [address] WBC 6.7 4.5-11.0 x10*3/mcL RBC 4.70 3.80-5.20 x10*6/mcL Hgb 13.5 12.0-16.0 g/dL Hct 41.7 36.0-46.0 % MCV 88.8 80.0-100.0 fL MCH 28.7 27.0-35.0 pg MCHC 32.3 31.0-37.0 % Platelet 389 150-450 x10*3/mcL RDW 14.6 11.6-14.8 % Mean Platelet Volume 8.2 6.7-10.6 fL Diff Auto Reviewed date:11/08/2024 08:33:01 AM Interpretation: Performing Lab: Notes/Report: [address] [address] Neutro Auto 75.8 47.2-70.8 % Lymph Auto 18.0 27.2-40.8 % Hodgeman Auto 5.5 3.7-11.9 % Eos Auto 0.4 0.0-5.4 % Basophil Auto 0.3 0.0-1.5 % Neutro Absolute 6.9 1.8-7.7 x10*3/mcL Lymph Absolute 1.6 1.0-4.8 x10*3/mcL Hodgeman Absolute 0.5 0.1-1.1 x10*3/mcL Eos Absolute 0.0 0.0-0.4 x10*3/mcL Baso Absolute 0.0 0.0-0.2 x10*3/mcL Complete Blood Count w Diffe rential Reviewed date:11/08/2024 08:33:01 AM Interpretation: Performing Lab: Notes/Report: [address] [address] WBC 9.1 4.5-11.0 x10*3/mcL RBC 4.14 3.80-5.20 x10*6/mcL Hgb 12.2 12.0-16.0 g/dL Hct 35.4 36.0-46.0 % MCV 85.5 80.0-100.0 fL MCH 29.4 27.0-35.0 pg MCHC 34.4 31.0-37.0 % Platelet 246 150-450 x10*3/mcL RDW 15.9 11.6-14.8 % Mean Platelet Volume 8.2 6.7-10.6 fL C SUKHJINDER Reviewed date:11/16/2024 08:31:20 AM Interpretation: Performing Lab: Notes/Report: [place] [address] Note : 1985 Patient Name: Radha Pierson [facility] C SUKHJINDER See Below For Report No anaerobic organisms isolated. Final C Bld Reviewed date:11/19/2024 08:08:32 AM Interpretation: Performing Lab: Notes/Report: [facility] (DEFAULT) [address] [place], [place] [id number] [place] [address] Note [facility] : 1985 Patient Name: Radha Pierson Demetris Bld per jenni saavedra disregard request for lab to draw 11/05/2024 06:27:11 EDT Final No growth at 5 days. C Bld See Below For Report Final No growth at 5 days. C Sterile BF Reviewed date:11/16/2024 08:31:20 AM Interpretation: Performing Lab: Notes/Report: [facility] [address] [place] [address] Note Patient Name: Radha Pierson : 1985 [facility] C Sterile BF See Below For [...] date:11/08/2024 08:33:01 AM Interpretation: Performing Lab: Notes/Report: [place] [address] pH Body Fluid 7.55 C SUKHJINDER Reviewed date:11/16/2024 08:31:21 AM Interpretation: Performing Lab: Notes/Report: [place] [address] Note : 1985 Patient Name: Radha Pierson [facility] C SUKHJINDER See Below For Report Final No anaerobic organisms isolated. C Sterile BF Reviewed date:11/16/2024 08:31:21 AM Interpretation: Performing Lab: Notes/Report: [place] [address] Note Patient Name: Radha Pierson [facility] : 1985 C Sterile BF See Below [...] date:11/19/2024 08:08:32 AM Interpretation: Performing Lab: Notes/Report: [facility] [address] [place] [address] Note [facility] Patient Name: Radha Pierson : 1985 C Bld See Below For Report Final No growth at 5 days. Body Fluid Panel Reviewed date:11/08/2024 08:33:01 AM Interpretation: Performing Lab: Notes/Report: vaginal fluid from vaginal defect and peritoneal drainage [place] [address] Fld Panel Body Fluid Type Other The reference range and analytic accuracy have not been established for these tests in this sample type. The test results should be interpreted based on clinical context. Glucose Body Fluid 11 LDH Body Fluid 410 Protein Body Fluid <3.0 Body Fluid Creatinine Reviewed date:11/08/2024 08:33:01 AM Interpretation: Performing Lab: Notes/Report: [address] [address] Creatinine Body Fluid Type Peritoneal Creatinine Body Fluid 0.6 Total Iron Binding Capacity Reviewed date:07/30/2024 08:31:09 AM Interpretation: Performing Lab: Notes/Report: [address] [address] Iron Sat 11.5 >=16.0 % TIBC 253 261-478 mcg/dL Transferrin 181 192-382 mg/dL Iron 29 28-170 mcg/dL Ferritin Reviewed date:07/30/2024 08:31:09 AM Interpretation: Performing Lab: Notes/Report: [place] [address] Ferritin Lvl 279.2 11.0-306.8 ng/mL Surgical Pathology Report Reviewed date:11/10/2024 08:34:54 AM Interpretation: Performing Lab: Notes/Report: [facility] (DEFAULT) [address] [place], [place] [id number] Note [facility] Patient Name: Radha Pierson : 1985 Surgical Pathology Report SP Specimen [id number] Diagnosis Pre-operative diagnosis: Vaginal dehiscence The vaginal cuff trimmings show vaginal mucosa with ulceration and acute and chronic inflammation and foreign body giant cell reaction to refractile material. There is no evidence of malignancy. [id number] A Vaginal Cuff Trimmings Microscopic Description Clinical [...] signed by) Verified: 11/09/24 12:33 Gross Description [id number] Procedure: Diagnostic laparoscopy robotic Dinah Trn [facility] Reviewed date:08/06/2024 01:00:05 PM Interpretation: Performing Lab: Notes/Report: [address] [address] Soluble Transferrin Receptor (sTfR)-[place] 3.7 1.8 - 4.6 mg/L [address] [place] [address] Cellophane Bag Machine Operator: Jose C Hassan Ph.D.; CLIA# [id number] ADDITI ONAL INFORMATION ----- [facility] higher values. It is reported that Americans may have slightly Test Performed by: Reason For Referral No Information Medications Medication [...] a day; Duration: 30 day(s) 10/14/2023 Active Vgecrxxhl-Zzkxfkft-GM 30-2-10 MG/5ML 10ml Orally every 6 hours [...] Status Risk Notes Problem Vitamin D deficiency (97663643) Vitamin D deficiency (E55.9) Active confirmed Problem Endometriosis (565056322) Endometriosis (N80.9) Active confirmed Problem Iron deficiency anemia (47936632) Iron deficiency anemia, unspecified iron deficiency anemia type (D50.9) Active confirmed Problem Seasonal allergy (719315077) Seasonal allergies (J30.2) Active confirmed Problem Allergic rhinitis (82713468) Allergic rhinitis, unspecified seasonality, unspecified trigger (J30.9) Active confirmed Problem Multiple thyroid nodules (765002968) Multiple thyroid nodules (E04.2) Active confirmed Problem History of anemia (717244149) History of anemia (Z86.2) Active confirmed Problem History of gestational diabetes mellitus (902769182) History of gestational diabetes (Z86.32) Active confirmed Vital Signs Heart Rate 84 /min 05/11/2024 Temperature 98.0 degrees Fahrenheit 05/11/2024 Respiratory Rate 17 /min 05/11/2024 Blood pressure diastolic 89 mm Hg 05/11/2024 Oximetry 98 % 05/11/2024 Height 65 in 05/11/2024 Blood pressure systolic 134 mm Hg 05/11/2024 Weight 203.6 lbs 05/11/2024 BMI 33.88 kg/m2 05/11/2024 Encounters Encounter Location Date Provider Diagnosis [facility] [address] [place] [address] 04/12/2024 Oralia Teresa Seasonal allergies J30.2 and Abnormal weight gain R63.5 [facility] [address] [place] [address] 05/11/2024 Millicent Alba Abnormal weight gain R63.5 and Upper respiratory infection J06.9 [facility] [address] [place] [address] 03/02/2024 Oralia Teresa Abnormal weight gain R63.[address] [address] 07/22/2024 Millicent Willis Assessments Encounter Date Diagnosis (ICD Code) Assessment Notes Treatment Notes Treatment Clinical Notes Section Notes 03/02/2024 Abnormal weight gain (ICD-10 - R63.5) [...] or any other adverse reactions Weight stable. 05/11/2024 Upper respiratory infection (ICD-10 - J06.9) Pt advised to rest, drink lots of fluids. Avoid tobacco use or exposure. 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
--- OUTSIDE RECORDS SUMMARY | 2025-02-25 12:43 | XMS_ITS | Clinical Summary ---
Author Organization [facility] Address [address] [place] [address] Care Team Providers Care Hardener Helper Name Role Phone Unavailable Primary Care Provider Unavailabl e Encounters Date Type Department Care Team Description 02/25/2025 Lab Requisition [facility] [address] [place] [address] Stewart Hernández, PhD from Last 3 Months Social History Tobacco Use Types Packs/Day Years Used Date Smoking Tobacco: Never Assessed Comments Unknown Sex and Gender Information Value Date Recorded Sex Assigned at Not on file Legal Sex Female 11:59 AM EDT Gender Identity Not on file Sexual Orientation Not on file Plan of Treatment Not on file
--- OUTSIDE RECORDS SUMMARY | 2025-02-25 12:43 | XMS_ITS | Encounter Summary ---
Author Organization [facility] Address [address], [address] [place] [address] Care Team Providers Care Hair Machine Operator Name Role Phone Millicent Willis APRN - RECYCLING ASSISTANT Primary Care Provider [phone] Encounter Details Date Type Department Care Team ([facility] Contact Info) Description 12/15/2024 Results Follow-Up [facility] Obstetrics & Gynecology [address] [facility], [address] [place] [address] Candis Alberts PA-C [address] [place] [address] Social History Tobacco Use Types Packs/Day Years Used Date Smoking Tobacco: Every Day E-Cigarettes Smokeless Tobacco: Never Alcohol Use Standard Drinks/Week Comments Yes 0 (1 standard drink = 0.6 oz pur e alcohol) [facility] Utilities Answer Date Recorded In the past 12 months has [employer], gas, oil, or water [employer] threatened to shut off services in your [...] any time in the past 12 m [facility], were you homeless or living in a [...] on filedocumented in this encounter Care Teams Hair Machine Operator Relationship Specialty Start Date End Date Millicent Willis APRN - RECYCLING ASSISTANT [address] [place] [address] PCP - General Nurse Practitioner 11/27/23 documented as of this encounter
--- OUTSIDE RECORDS SUMMARY | 2025-02-25 12:43 | XMS_ITS | Clinical Summary ---
Author Organization [facility] Address [address], [address] [place] [address] Care Team Providers Care Feed Inspection Supervisor Name Role Phone Millicent Willis APRN - MANAGER COUNTRY Primary Care Provider [phone] Allergies Active Allergy Reactions Criticality Noted Date [...] Type Department Care Team Description 01/26/2025 Telephone [facility] Obstetrics & Gynecology [address] [facility], [address] [place] [address] Candis Alberts PA-C Medication Refill 12/15/2024 Orders Only [facility] Obstetrics & Gynecology [address] [facility], [address] [place] [address] Candis Alberts PA-C 12/15/2024 Results Follow-Up [facility] Obstetrics & Gynecology [address] [facility], [address] [place] [address] Candis Alberts PA-C 12/14/2024 7:24 PM EDT - 12/14/2024 11:59 PM EDT Hospital Encounter [facility] [address] [place] [address] Vaginal discharge Discharge Disposition: Home or Self Care 12/14/2024 1:15 PM EDT Office Visit [facility] Obstetrics & Gynecology [address] [facility], [address] [place] [address] Candis Alberts PA-C Vaginal discharge (Primary Dx) from Last 3 Months Family [...] drink = 0.6 oz pur e alcohol) [facility] Utilities Answer Date Recorded In the past 12 months has [employer], gas, oil, or water [employer] threatened to shut off services in your [...] any time in the past 12 m [facility], were you homeless or living in a senior living (including now)? No 08/03/2024 Food Insecurity Answer [...] HIGH RISK Routine 02/05/2024 12:00 AM EDT [facility] [facility] CYTOLOGY Routine 02/05/2024 12:00 AM EDT from Last 3 Months or Most Recently Relevant to Health Maintenance Results * (ABNORMAL) Vaginitis DNA Probe (12/14/2024 7:48 PM EDT) Pathologist [facility] Source .VAGINAL SWAB 12/14/2024 7:48 PM EDT [facility] Trichomonas NEGATIVE NEGATIVE 12/14/2024 7:[address] [facility] Comment:for Trichomonas Vagi nalis GARDNERELLA VAGINALIS POSITIVE(A) NEGATIVE 12/14/2024 7:48 PM EDT [facility] Comment:for Gardnerella vagi nalis Kim species NEGATIVE NEGATIVE 7:48 PM EDT [facility] Comment: for Kim sp. Method of testing is a DNA probe intended for detection and identification of Kim species, Gardnerella vaginalis, and Trichomonas vaginalis nucleic acid in vaginal fluid specimens from patients with symptoms of vaginitis/vaginosis. SPECIMEN FROM CERVIX OR VAGINA / Unknown 12/14/2024 7:48 PM EDT 12/14/2024 7:48 PM EDT Candis Alberts PA-C MICROBIOLOGY - GENERAL O RDERABLES Final Result [facility] [address] [place] [address], [facility] [phone] * Human papillomavirus (HPV) DNA probe thin prep high risk (02/05/2024 12:00 AM EDT) Pathologist [facility] Specimen Description CERVICAL MATERIAL 02/05/2024 12:00 AM EDT [facility] HPV Sample .THIN PREP 02/05/2024 12:00 AM EDT [facility] HPV, Genotype 16 Not Detected Not Detected 02/05/2024 12:00 AM EDT [facility] HPV, Genotype 18 Not Detected Not Detected 02/05/2024 12:00 AM EDT [facility] HPV, High Risk Other Not Detected Not Detected 02/05/2024 12:00 AM EDT [facility] HPV, Interpretation 02/05/2024 12:00 AM EDT [facility] Comment: This test amplifies and detects DNA [...] for other forensic purposes. CERVICAL MATERIAL 02/05/2024 us Candis Alberts PA-C HEMATOLOGY ORDERABLES Fi nal Result [facility] [address] [place] [address], [facility] [phone] * SA[employer] Cytology (02/05/2024 12:00 AM EDT) Cytology Report Path Number: [id number] DIAGNOSIS Imaged ThinPrep Pap - Cervical (1 [...] or for other forensic purposes. Performed at [facility], [address] [place] [address] . Source of Specimen: A: Imaged ThinPrep Pap - Cervical (1 monolayer slide) HPV Reflex?........... ...........HPV Regardless Clinical History Z01.419 Routine obstetrics gynecology md exam without abnormal findings LMP: 12/16/2023 Processing Lab: [address] [address] Interpretation performed at [address] [address] This Pap Test has been evaluated with [...] GYNECOLOGIC CYTOLOGY REPORT Patient Name: JEIMY PIERSON [facility] Rec: [id number] [facility] ANATOMIC PATHOLOGY [address] [place] [id number] [facility] CERVICAL MATERIAL 02/05/2024 024 6:51 AM EDT Candis Alberts PA-C PATHOLOGY/CYTOLOGY ORDER [place] [address], [facility] [phone] [facility] [place] from Last 3 Months or Most Recently Relevant to Health Maintenance Insurance [employer] Advance Directives * Full Code (Latest Code Status on File) Date Activated Date Inactivated Comments 07/12/2024 10:34 AM 07/12/2024 5:11 PM Care Teams Feed Inspection Supervisor Relationship Specialty Start Date End Date Millicent Willis APRN - MANAGER COUNTRY [address] [place] [address] PCP - General Nurse Practitioner 11/27/23
[2025-02-25 12:45] VITALS: BP 154/96; PULSE 79; TEMP 36.6; O2SAT 100; BMI 31.6
--- NOTE | 2025-02-25 13:14 | CT_ITS ---
The [address] [address] Patient Name: RADHA JOHNSON MRN: [id number] date: 1985 Sex: F Assigned Patient Location: ER Current Patient Location: ER Accession/Order Number: [id number] Exam Date: 02/25/2025 14:18 Report Date: 02/25/2025 14:22 At the request of: BRIANNA KOHLI Procedure: CT abdomen pelvis w con CT ABDOMEN AND PELVIS WITH INTRAVENOUS CONTRAST: CLINICAL HISTORY: llq pain and dysuria COMPARISON: None TECHNIQUE: Spiral images were obtained through the abdomen and pelvis following the administration of intravenous contrast. This CT exam was performed using one or more following dose reduction techniques: Automated exposure control, adjustment of the mA and/or kV according to patient size, or use of iterative reconstruction technique. FINDINGS: Lung Bases: [Mild bibasilar atelectasis.] Organs:Liver gallbladder portal vein pancreas spleen adrenal glands kidneys and aorta all appear unremarkable.[ GI: Stomach is grossly unremarkable. Small bowel appears nondilated. Appendix is normal. No acute colonic abnormality. Sigmoid diverticulosis.[ Pelvis:[Urinary bladder is minimally distended. Uterus has been removed. No adnexal mass.] Peritoneum/Retroperitoneum:No free air or free fluid or lymphadenopathy.[ Abd wall/Bones:Abdominal wall demonstrates no acute findings. Presumed postinjection changes involving the left gluteal region. Osseous structures demonstrate degenerative change.[ CT/CT abdomen pelvis w con IMPRESSION: No acute process. Sigmoid diverticulosis. Impression dictated by: Daquan Dinero Jr., D.O. 02/25/2025 2:22 PM Dictation Location: [place] [address] Electronically authenticated by: [id number] Y Date: 02/25/2025 14:22
--- NOTE | 2025-02-25 13:17 | ED.GENADUL1 ---
HPI HPI - General Adult General Chief complaint: Abdominal Pain Stated complaint: KIDNEY STONES Time Seen by Provider: 02/25/25 12:40 Source: patient Mode of arrival: walk-in Limitations: no limitations History of Present Illness HPI narrative: Patient presents with 3-day history of abdominal pain bloating recently treat for GI and high blood pressure concerned about kidney stones. Denies any fever, chills, nausea, vomiting, urinary bleeding, rectal bleeding. Denies any history of kidney stones or diverticulosis or diverticulitis. Symptoms mild to moderate in severity worse with touch or motion she does note some lightheadedness. Onset (ago): day(s) (3) Location: Reports abdomen Radiation: Reports back Severity: moderate Associated symptoms: Denies nausea/vomiting Related Data Home Medications ?Medication ?Instructions ?Recorded ?Confirmed acetaminophen 500 mg tablet 1,000 mg PO BID 02/25/25 02/25/25 albuterol sulfate 90 mcg/actuation 2 inh inhalation Q8H PRN shortness 02/25/25 02/25/25 aerosol inhaler of breath or wheezing amlodipine 5 mg tablet 5 mg PO DAILY 02/25/25 02/25/25 aripiprazole 5 mg tablet 5 mg PO .QHS 02/25/25 02/25/25 buspirone 10 mg tablet 10 mg PO TID 02/25/25 02/25/25 cariprazine 3 mg capsule (Vraylar) 3 mg PO Q24H 02/25/25 02/25/25 estradiol 1 mg tablet 1 mg PO DAILY 02/25/25 02/25/25 hydroxyzine pamoate 25 mg capsule 25 mg PO Q6H PRN anxiety 02/25/25 02/25/25 ibuprofen 800 mg tablet 800 mg PO BID 02/25/25 02/25/25 lamotrigine 25 mg tablet 25 mg PO DAILY 02/25/25 02/25/25 melatonin 10 mg capsule 10 mg PO .qhs 02/25/25 02/25/25 naltrexone microspheres 380 mg 380 mg IM .monthly 02/25/25 02/25/25 intramuscular suspension,extended release (Vivitrol) nitrofurantoin 100 mg PO BID 02/25/25 02/25/25 monohydrate/macrocrystals 100 mg capsule olanzapine 5 mg tablet 5 mg PO BID PRN mood stabilizer 02/25/25 02/25/25 trazodone 50 mg tablet 50 mg PO .QHS 02/25/25 02/25/25 Previous Rx's ?Medication ?Instructions ?Recorded dicyclomine 10 mg capsule 10 mg PO TID #14 caps 02/25/25 Allergies Allergy/AdvReac Type Severity Reaction Status Date / Time No Known Drug Allergies Allergy Verified 02/25/25 12:48 Review of Systems ROS Status of ROS 10 or more systems reviewed and unremarkable except as noted in history and below Constitutional Denies: fever Eyes Denies: change in vision Ears, nose, mouth, and throat Denies: throat pain Cardiovascular Denies: chest pain Respiratory Denies: shortness of breath or cough Gastrointestinal Reports: abdominal pain; Denies: constipation or blood in stool Genitourinary Reports: painful urination; Denies: blood in urine Musculoskeletal Reports: back pain Integumentary/Breast Denies: rash Neurological Reports: other (lightheadedness) Psychiatric Denies: anxiety Endocrine Denies: excessive urination Hematologic/Lymphatic Denies: easy bruising Allergic/Immunologic Denies: wheezing PFSH PFSH Social History Little interest or pleasure in doing things: not at all Feeling down, depressed, or hopeless: not at all Exam Constitutional Vital Signs, click to edit/add: Last Vital Signs Temp 97.9 F 02/25/25 12:45 Pulse 79 02/25/25 12:45 Resp 18 02/25/25 12:45 BP 154/96 H 02/25/25 12:45 Pulse Ox 100 02/25/25 12:45 O2 Del Method Room Air 02/25/25 12:45 Documenting provider has reviewed patient's vital signs: yes Common normals: no apparent distress and oriented x3 HENDC Common normals: normocephalic, hearing grossly normal bilaterally and external ears normal Eye Common normals: PERRL, EOMs intact bilaterally and conjunctivae normal Neck & C-Spine Common normals: full ROM and supple Respiratory Common normals: normal respiratory effort Cardio Common normals: regular rate, regular rhythm, S1 normal heart sound and S2 normal heart sound GI Common normals: Normal to inspection, nondistended, normoactive bowel sounds present; tender Inspection: no abdominal distension Auscultation: normoactive bowel sounds Palpation: tender Details: LLQ and guarding Back & Pelvis Common normals: thoraco-lumbar ROM normal Extremity Common normals: normal to inspection and full ROM Neuro Common normals: oriented x3 and moves all extremities Psych Common normals: mental status grossly normal and thought process normal Course Vital Signs Vital signs: Vital Signs Temperature 97.9 F 02/25/25 12:45 Pulse Rate 79 02/25/25 12:45 Respiratory Rate 18 02/25/25 12:45 Blood Pressure 154/96 H 02/25/25 12:45 Pulse Oximetry 100 02/25/25 12:45 Oxygen Delivery Method Room Air 02/25/25 12:45 Temperature 97.9 F 02/25/25 12:45 Pulse Rate 79 02/25/25 12:45 Respiratory Rate 18 02/25/25 12:45 Blood Pressure 154/96 H 02/25/25 12:45 Pulse Oximetry 100 02/25/25 12:45 Oxygen Delivery Method Room Air 02/25/25 12:45 Medical Decision Making MDM Narrative Medical decision making narrative: See [facility] for data. Patient presents with increasing left lower quadrant abdominal pain. Concern for kidney stone versus UTI. Patient states her surgical history includes hysterectomy and bilateral oophorectomy. Will add CBC CMP CT lipase urinalysis. Discussed plan of care with patient she is agreeable plan of care. CT and lab work with Dr. Martha madison disposition Home patient resting comfortably. She takes ibuprofen at [facility]. Will add dicyclomine 10 mg first dose emergency room discussed plan of care with patient agreeable plan of care. Differential Diagnosis Differential Diagnosis: Abdominal pain, diverticulosis, diverticulitis, UTI, pyelonephritis, kidney Lab Data Lab results reviewed: Yes I reviewed the patient's lab results Labs: Lab Results 02/25/25 02/25/25 Range/Units 13:32 13:45 WBC 5.5 (4.0-11.0) 10^3/uL RBC 4.46 (4.20-5.40) 10^6/uL Hgb 13.0 (12.0-16.0) g/dL Hct 39.6 (36.0-48.0) % MCV 88.8 (81.0-99.0) fL MCH 29.1 (26.7-34.0) pg MCHC 32.8 (29.9-35.2) g/dL RDW 14.1 (11.0-15.0) % Plt Count 288 (150-450) 10^3/uL MPV 10.3 (9.5-13.5) fL Neut % (Auto) 58.8 (43.0-75.0) % Lymph % (Auto) 31.0 (20.5-60.0) % Nicholas % (Auto) 4.9 (1.7-12.0) % Eos % (Auto) 3.8 (0.9-7.0) % Baso % (Auto) 1.1 (0.2-2.0) % Neut # (Auto) 3.2 (1.4-6.5) 10^3/uL Lymph # (Auto) 1.7 (1.2-3.8) 10^3/uL Nicholas # (Auto) 0.3 (0.3-0.8) 10^3/uL Eos # (Auto) 0.2 (0.0-0.7) 10^3/uL Baso # (Auto) 0.1 (0.0-0.1) 10^3/uL Abs Immat Gran (auto) 0.02 (0.00-0.03) 10^3/uL Imm/Tot Granulo (auto) 0.4 (0.0-0.5) % Sodium 143 (136-145) mmol/L Potassium 4.1 (3.5-5.1) mmol/L Chloride 109 H (98-107) mmol/L Carbon Dioxide 29.4 (21.0-32.0) mmol/L Anion Gap 8.7 BUN 15.0 (7.0-18.0) mg/dL Creatinine 0.66 (0.55-1.02) mg/dL Est GFR ( Amer) >60 (>=60 mL/min/1.73m^2) Est GFR (Non-Af Amer) >60 (>=60 mL/min/1.73m^2) BUN/Creatinine Ratio 22.7 Glucose 98 (74-106) mg/dL Calcium 8.6 (8.5-10.1) mg/dL Total Bilirubin 0.2 (0.2-1.0) mg/dL AST 16 (15-37) U/L ALT 31 (14-59) U/L Alkaline Phosphatase 86 (46-116) U/L Total Protein 6.7 (6.4-8.2) g/dL Albumin 3.5 (3.4-5.0) g/dL Globulin 3.2 g/dL Albumin/Globulin Ratio 1.1 Lipase 32.0 (16.0-77.0) U/L Urine Color Lt. yellow (YELLOW) Urine Clarity Clear (CLEAR) Urine pH 6.5 (5.0-9.0) Ur Specific [place] 1.015 (1.005-1.025) Urine Protein Negative (NEG/TRACE) mg/dL Urine Glucose (UA) Negative (NEGATIVE) mg/dL Urine Ketones Negative (NEGATIVE) mg/dL Urine Occult Blood Negative (NEGATIVE) Urine Nitrite Negative (NEGATIVE) Urine Bilirubin Negative (NEGATIVE) Urine Urobilinogen 0.2 (0.2-1.0) EU/dL Ur Leukocyte Esterase Negative (NEGATIVE) Discharge Plan Discharge Chief Complaint: Abdominal Pain Clinical Impression: Diverticulosis Abdominal pain Qualifiers: Abdominal location: left lower quadrant Qualified Code(s): R10.32 - Left lower quadrant pain Patient Disposition: Home, Self-Care Time of Disposition Decision: 14:55 Mode of Transportation: Private Vehicle Prescriptions / Home Meds: New dicyclomine 10 mg capsule 10 mg PO TID Qty: 14 0RF No Action amlodipine 5 mg tablet 5 mg PO DAILY hydroxyzine pamoate 25 mg capsule 25 mg PO Q6H PRN (Reason: anxiety) acetaminophen 500 mg tablet 1,000 mg PO BID albuterol sulfate 90 mcg/actuation HFA aerosol inhaler 2 inh INHALATION Q8H PRN (Reason: shortness of breath or wheezing) aripiprazole 5 mg tablet 5 mg PO .QHS buspirone 10 mg tablet 10 mg PO TID Vraylar 3 mg capsule 3 mg PO Q24H estradiol 1 mg tablet 1 mg PO DAILY ibuprofen 800 mg tablet 800 mg PO BID lamotrigine 25 mg tablet 25 mg PO DAILY melatonin 10 mg capsule 10 mg PO .qhs Vivitrol 380 mg suspension,extended rel recon 380 mg IM .monthly nitrofurantoin monohyd/m-cryst 100 mg capsule 100 mg PO BID olanzapine 5 mg tablet 5 mg PO BID PRN (Reason: mood stabilizer) trazodone 50 mg tablet 50 mg PO .QHS Print Language: Tajik Instructions: Diverticulosis (ED), Abdominal Pain (ED) Additional Instructions: Clear liquid diet for 24 hours including water, Jell-O, popsicles, clear broth, Gatorade. Follow-up with primary care. Return to if any symptoms worsen or new symptoms develop. May use Tylenol and ibuprofen as directed on package for pain or discomfort. Referrals: Physician,Non-Staff, MD [Primary Care Provider] - 1 week
[2025-02-25 13:41] LABS: Hematocrit 39.6 % (36.0-48.0); Hemoglobin 13.0 g/dL (12.0-16.0); Immature Granulocytes Abs Auto 0.02 10^3/uL (0.00-0.03); Immature Granulocytes Pct Auto 0.4 % (0.0-0.5); Lymphocytes Absolute Auto 1.7 10^3/uL (1.2-3.8); Mean Corpuscular HGB Conc 32.8 g/dL (29.9-35.2); Mean Corpuscular Hemoglobin 29.1 pg (26.7-34.0); Mean Corpuscular Volume 88.8 fL (81.0-99.0); Platelet Count 288 10^3/uL (150-450); Red Blood Count 4.46 10^6/uL (4.20-5.40); White Blood Count 5.5 10^3/uL (4.0-11.0)
[2025-02-25 13:54] LABS: Glucose Urine UA NEGATIVE (NEGATIVE)
[2025-02-25 13:59] LABS: Alanine Aminotransferase 31 U/L (14-59); Albumin Globulin Ratio 1.1; Albumin Level 3.5 g/dL (3.4-5.0); Alkaline Phosphatase 86 U/L (46-116); Anion Gap 8.7; Aspartate Amino Transferase 16 U/L (15-37); Blood Urea Nitrogen 15.0 mg/dL (7.0-18.0); Calcium 8.6 mg/dL (8.5-10.1); Carbon Dioxide 29.4 mmol/L (21.0-32.0); Chloride 109 mmol/L (98-107); Estimated GFR (African America >60 (>=60 mL/min/1.73m^2); Estimated GFR (Non-African Ame >60 (>=60 mL/min/1.73m^2); Globulin 3.2 g/dL; Glucose 98 mg/dL (74-106); Lipase 32.0 U/L (16.0-77.0); Potassium 4.1 mmol/L (3.5-5.1); Sodium 143 mmol/L (136-145); Total Protein 6.7 g/dL (6.4-8.2)
[2025-02-25] MEDS: DICYCLOMINE HCL 10 MG CAPSULE PO (15:17)
== END 2025-02-25 15:26 | disposition home or self-care (01) ==
PROVIDERS: Physician Assistant; Emergency Provider Emergency Medicine
DX: K57.90 Diverticulosis of intestine, part unspecified, without perforation or abscess without bleeding (principal); R10.32 Left lower quadrant pain; R14.0 Abdominal distension (gaseous); R42 Dizziness and giddiness
CPT/HCPCS: 36415; 74177; 80053; 81003; 83690; 85025; 99285; Q9967